=== PATIENT | male | born 1960 | race Caucasian/White ===

== ENCOUNTER → 2020-11-25 14:39 | Outpatient (BNVA) | payer OTHER, SELFPAY | PROVIDERS: PCP Nurse Practitioner Family; Visit Provider Nurse Practitioner Family ==

== ENCOUNTER → 2020-12-24 08:04 | Outpatient (BNVA) | payer OTHER, SELFPAY | PROVIDERS: PCP Nurse Practitioner Family; Visit Provider Nurse Practitioner Family ==

== ENCOUNTER 2021-01-07 06:03 | Outpatient (REF) | payer OTHER, SELFPAY ==
--- NOTE | ~2021-01-07 | FL_ITS ---
EXAMINATION: XR FLUOROSCOPY WITH IMAGES CLINICAL INFORMATION: M47.812 - Spondylosis without myelopathy or radiculopathy, cervical region COMPARISON: None. TECHNIQUE: Fluoroscopy performed by Kathryn Meza NP. Fluoroscopy time: 0.6 minutes DAP: 4.73 Gycm2 Images: 6 FINDINGS: There are bilateral spinal needles overlying the outer neural foramen at 3 levels lower cervical spine, each side. There is contrast in the nerve sheaths and some paraspinal soft tissue contrast. No visible vascular communication. FL/FL guidance in treatment room IMPRESSION: Fluoroscopy for pain management procedures.
== END 2021-01-07 06:04 | disposition home or self-care (01) ==
LOC: HO.RADIR 06:03
PROVIDERS: Visit Provider Anesthesiology
DX: M47.812 Spondylosis without myelopathy or radiculopathy, cervical region (principal); M47.27 Other spondylosis with radiculopathy, lumbosacral region; M45.9 Ankylosing spondylitis of unspecified sites in spine
CPT/HCPCS: 64490; 64491; Q9967

== ENCOUNTER → 2021-01-14 10:31 | Outpatient (BNVA) | payer OTHER, SELFPAY | PROVIDERS: PCP Nurse Practitioner Family; Visit Provider Nurse Practitioner Family ==

== ENCOUNTER → 2021-01-21 09:00 | Outpatient (BNVA) | payer OTHER, SELFPAY | PROVIDERS: PCP Nurse Practitioner Family; Visit Provider Nurse Practitioner Family ==

== ENCOUNTER 2021-06-13 11:19 | Day surgery (SDC) | payer OTHER, SELFPAY ==
--- NOTE | 2021-06-12 12:13 | P.CONAN_ITS ---
Documented by User: Alison Galindo NP 06/12/21 12:14 HPI - Anesthesia Eval Consult details Narrative: 60yo M for C5-C6-C7 Medial Branch Radiofrequency AB PMFSH Active Problems Active Problems: All Active Problems (Updated 06/06/21 @ 10:03 by Jamilah Avalos, BIANCA) Ankylosing spondylitis (Acute) Spondylosis of lumbosacral spine with radiculopathy (Acute) Spondylosis of cervical region without myelopathy or radiculopathy (Acute) Past Medical History Medical History Alcohol abuse Anxiety Arthritis Asthma Major depressive disorder Surgical History Surgical History History of appendectomy History of nasal septoplasty Social History Social History Patient Tobacco Use Status: Never used Tobacco Use of substances other than those prescribed or required for medical reasons: Unable to respond Have you been hit, kicked, punched, or otherwise hurt by someone within the past year? If so, by whom?: No Are you DNR?: No Advance Directives: No Advance Directives Information Provided: Yes Recently lost weight without trying: No Nutrition Risks: No Nutritional Risk Poor oral hygiene: No Meds Allergies Allergy/AdvReac Type Severity Reaction Status Date / Time No Known Allergies Allergy Verified 01/21/21 09:08 Home Medications Medication Instructions Recorded Confirmed Last Taken Type disulfiram 250 mg tablet 250 mg PO DAILY 11/25/20 06/06/21 Unknown History duloxetine 60 mg capsule,delayed 60 mg PO DAILY 11/25/20 06/06/21 Unknown History release (Cymbalta) gabapentin 300 mg capsule 300 mg PO TID 11/25/20 06/06/21 Unknown History indomethacin 50 mg capsule 50 mg PO BID 11/25/20 06/06/21 Unknown History albuterol sulfate 90 mcg/actuation 1 puff INHALATION Q4-6H PRN 06/06/21 06/06/21 Unknown History aerosol inhaler (ProAir HFA) cyclobenzaprine 10 mg tablet 1 tab PO BEDTIME 06/06/21 06/06/21 Unknown History lorazepam 0.5 mg tablet 1 tab PO BID PRN 06/06/21 06/06/21 Unknown History quetiapine 25 mg tablet 1 tab PO DAILY 06/06/21 06/06/21 Unknown History tramadol 50 mg tablet 1 tab PO TID PRN 06/13/21 06/13/21 06/13/21 10:00 History Exam Exam Date and Time: June 12, 2021 1213 Assessment and Plan Assessment Anesthesia Assessment: Chart Reviewed Documented by User: Norma Cam MD 06/13/21 12:59 [facility] Past Medical History Medical History Alcohol abuse Anxiety Arthritis Asthma Major depressive disorder Family History Family history of problems with anesthesia: No Surgical History Surgical History History of appendectomy History of nasal septoplasty History of Problems with Anesthesia: No Social History Social History Patient Tobacco Use Status: Never used Tobacco Use of substances other than those prescribed or required for medical reasons: Unable to respond Have you been hit, kicked, punched, or otherwise hurt by someone within the past year? If so, by whom?: No Are you DNR?: No Advance Directives: No Advance Directives Information Provided: Yes Recently lost weight without trying: No Nutrition Risks: No Nutritional Risk Poor oral hygiene: No Meds Allergies Allergy/AdvReac Type Severity Reaction Status Date / Time No Known Allergies Allergy Verified 01/21/21 09:08 Home Medications Medication Instructions Recorded Confirmed Last Taken Type disulfiram 250 mg tablet 250 mg PO DAILY 11/25/20 06/06/21 Unknown History duloxetine 60 mg capsule,delayed 60 mg PO DAILY 11/25/20 06/06/21 Unknown History release (Cymbalta) gabapentin 300 mg capsule 300 mg PO TID 11/25/20 06/06/21 Unknown History indomethacin 50 mg capsule 50 mg PO BID 11/25/20 06/06/21 Unknown History albuterol sulfate 90 mcg/actuation 1 puff INHALATION Q4-6H PRN 06/06/21 06/06/21 Unknown History aerosol inhaler (ProAir HFA) cyclobenzaprine 10 mg tablet 1 tab PO BEDTIME 06/06/21 06/06/21 Unknown History lorazepam 0.5 mg tablet 1 tab PO BID PRN 06/06/21 06/06/21 Unknown History quetiapine 25 mg tablet 1 tab PO DAILY 06/06/21 06/06/21 Unknown History tramadol 50 mg tablet 1 tab PO TID PRN 06/13/21 06/13/21 06/13/21 10:00 History Exam Airway Mallampati Class: II TM Dist: >3cm Neck ROM: Full Assessment and Plan Assessment Anesthesia Assessment: Anesthesia Plan Discussed Final Anesthetic Review Family History of Problems with Anesthesia: No History of Problems with Anesthesia: No NPO: No ASA Class: II Final Preanesthetic Review: No Changes in Pt Med Stat, Meds/Allgs Chart Reviewed, Consent Obtained/Reviewed and Anes Risks/Benef Reviewed Patient Risk: Low Procedure Risk: Low Assessment/Block/Sedation in SS: Assess/Block/Sedation-SS Anesthetic Plan Anesthetic Plan: MAC: Disposition: Standard PACU
--- NOTE | ~2021-06-13 | FL_ITS ---
EXAMINATION: XR FLUOROSCOPY WITH IMAGES CLINICAL INFORMATION: Medial branch RFA, cervical COMPARISON: None. TECHNIQUE: Fluoroscopy performed by Dr. Rashaad Richey. Fluoroscopy time: 1.7 minutes DAP: 8.6 Gycm2 Images: 2 FINDINGS: There are spinal electrode seen overlying the bilateral lateral masses lower cervical spine, each side at 3 levels. FL/FL guidance in OR IMPRESSION: Fluoroscopy for pain management procedures.
--- NOTE | 2021-06-13 11:44 | MHC.SHP ---
Pre-Procedural Eval Section A Date of Service: 06/13/21 Section B Chief Complaint: Spondylosis of cervical region Details of Present Illness: As above Relevant Family History (Specify if Yes): No Relevant Social History: None Present Medications: see Short Stay Collaborative assessment Medical History: No relevant PMH Allergies: Allergies Allergy/AdvReac Type Severity Reaction Status Date / Time No Known Allergies Allergy Verified 01/21/21 09:08 Review of Systems Sugical H&P ROS: Negative: Constitution, Cardiovascular, Respiratory, Neurological, Psychiatric, Hem-Onc, Allergic/Immunologic, Gastrointestinal, Genitourinary, Musculoskeletal, Integumentary, Endocrine and Eyes/Ears/Nose/Throat Exam Surgical H&P Exam: Normal: HEENT, Normal: Heart, Normal: Lungs, Normal: Extremities, Normal: Abdomen, Normal: Skin and Normal: Neurological Plan Diagnosis/Plan: Unchanged I have reviewed the history and physical and performed a pertinent physical examination on my patient. No changes have occurred unless specified.
[2021-06-13 11:51] VITALS: BP 153/87; PULSE 96; RESP 18; TEMP 36.3; O2SAT 96; BMI 26.6
[2021-06-13] MEDS: Lactated Ringers 1,000 ML 100 ML IVCONT (12:09)
--- NOTE | 2021-06-13 13:18 | MHC.SHP ---
Pre-Procedural Eval Section A Date of Service: 06/13/21 Section B Chief Complaint: Spondylosis of cervical region Details of Present Illness: As above Relevant Family History (Specify if Yes): No Relevant Social History: None Present Medications: see Short Stay Collaborative assessment Medical History: No relevant PMH History of Previous Operations: No relevant previous surgery Allergies: Allergies Allergy/AdvReac Type Severity Reaction Status Date / Time No Known Allergies Allergy Verified 01/21/21 09:08 Review of Systems Sugical H&P ROS: Negative: Constitution, Cardiovascular, Respiratory, Neurological, Psychiatric, Hem-Onc, Allergic/Immunologic, Gastrointestinal, Genitourinary, Musculoskeletal, Integumentary, Endocrine and Eyes/Ears/Nose/Throat Exam Surgical H&P Exam: Normal: HEENT, Normal: Heart, Normal: Lungs, Normal: Extremities, Normal: Abdomen, Normal: Skin and Normal: Neurological Plan Diagnosis/Plan: Unchanged I have reviewed the history and physical and performed a pertinent physical examination on my patient. No changes have occurred unless specified.
[2021-06-13 15:15] VITALS: BP 147/90; PULSE 71; RESP 17; TEMP 36.6; O2SAT 100
--- NOTE | 2021-06-13 15:21 | P.BOP_ITS ---
Brief Operative Note Date of Service: 06/13/21 Pre-op diagnosis: Spondylosis cervical spine ankylosis spondylitis Procedure: Radiofrequency ablation C5-C6 C7 medial branch nerves bilateral Implants: None Surgeon: Rashaad Richey MD Anesthesia: MAC Was an Mess Cook used for this Procedure?: No Estimated blood loss (mL): 9 Pathology: none sent Condition: stable Disposition: PACU
--- NOTE | 2021-06-13 15:22 | P.OP_ITS ---
Operative Note Operative Note Date of Service: 06/13/21 Narrative: Informed consent was explained to the patient. All questions were explained and answered.? The patient was taken inside the operating room where the patient was positioned prone on the operating table with the pillow under the chest and a small head support. ASA monitors were applied and the patient was minimally sedated. Time-out was performed delineating correct site, side, the nature of the procedure, patient's allergy, All operating room staff was participating in OR time-out procedure. The posterior neck was prepped with ChloraPrep and draped with sterile towels.? Sterilely draped C-arm was brought over the operating field and square picture of C5-C6 and C7? vertebrae? were delineated on the screen.? Point of interest were delineated as BILATERAL lateral? masses of the above mentioned vertebrae. The waste line of the lateral masses was chosen as the final needle target. The projection of the point of interest to the skin were injected with the small amount of local anesthetic lidocaine 2% 1-1.5 cc.? After that first on the right side 18 gauge 100 mm radiofrequency cannulas were driven to the point of interest in tunnel vision fashion.? After needles gently contacting the bone at the point of interests the lateral view was obtained for each cannula and it? was adjusted to be in the centroid of the lateral mass paralelloid projection. Stylets were removed from the cannulas and nitinol e lectrodes were inserted into the cannulas. Testing was performed at each level during which the patient did not report any motor stimulation in the arm, forearm, or hand. The electrodes were removed; the cannulas were injected with small amount of bupivacaine 0.5%-1cc mixed with trace amount of kenalog. The electrodes were reinserted and after 90 seconds of wait? RF energy was applied at the temperature of 89 degrees Celsius for 90 seconds. After that the cannulas were rotated 180 degreed the same energy application was repeated.? Upon completion of the injections the cannulas were removed and the procedure was performed in the mirroring fashion on the left side. Sterile band aids were applied , patient was taken outside of the operating room to recovery room where recovered uneventfully.? The patient went home without immediate complications.?
[2021-06-13 15:30] VITALS: BP 162/89; PULSE 74; RESP 16; TEMP 36.6; O2SAT 97
== END 2021-06-13 15:43 | disposition home or self-care (01) ==
PROVIDERS: PCP Nurse Practitioner Family; Visit Provider Anesthesiology
PROC: (CPT 64633; principal; 2021-06-13 13:00)
DX: M47.812 Spondylosis without myelopathy or radiculopathy, cervical region (principal); M47.27 Other spondylosis with radiculopathy, lumbosacral region; M45.9 Ankylosing spondylitis of unspecified sites in spine; Z79.891 Long term (current) use of opiate analgesic
CPT/HCPCS: 64633; 64634 ×2; J2250; J2405; J3010; J3300; Q9967

== ENCOUNTER → 2021-07-21 10:08 | Outpatient (BNVA) | payer OTHER, SELFPAY | PROVIDERS: PCP Nurse Practitioner Family; Visit Provider Anesthesiology ==

== ENCOUNTER 2023-10-18 09:50 | Emergency (ER) | payer OTHER, SELFPAY ==
[2023-10-18 10:09] VITALS: BP 169/104; PULSE 73; RESP 20; TEMP 35.8; O2SAT 98; BMI 27.4
[2023-10-18 10:19] LABS: MANUAL DIFF FLAG NO
[2023-10-18 10:20] LABS: Basophils Percent Auto 0.2 % (0-2); Eosinophils Absolute Auto 0.1 X10*3/uL (0.0-0.4); Eosinophils Percent Auto 0.6 % (0-4); Hematocrit 40.8 % (42.0-52.0); Hemoglobin 14.5 g/dl (14.0-18.0); Imm Gran Abs Auto 0.05 X10*3/uL (0.00-0.03); Imm Gran Pct Auto 0.4 % (0.0-0.4); Lymphocytes Absolute Auto 0.8 X10*3/uL (1.2-4.9); Lymphocytes Percent Auto 5.9 % (20-40); Mean Corpuscular HGB Conc 35.5 g/dl (31.0-36.0); Mean Corpuscular Hemoglobin 33.7 pg (27.0-33.0); Mean Corpuscular Volume 94.9 fL (80.0-98.0); Mean Platelet Volume 8.7 fL (9.4-12.4); Monocytes Absolute Auto 0.8 X10*3/uL (0.1-1.2); Monocytes Percent Auto 5.9 % (2-11); Neutrophils Absolute Auto 11.4 x10*3/uL (2.0-8.3); Platelet Count 273 X10*3/uL (160-400); Red Cell Distribution Width 12.2 % (11.0-16.0); White Blood Count 13.1 X10*3/uL (4.8-10.8)
[2023-10-18 10:38] LABS: Alanine Aminotransferase 44 U/L (0-40); Albumin Level 4.7 g/dL (3.5-5.0); Alkaline Phosphatase 61 U/L (39-117); Anion Gap 14 (12-20); Aspartate Amino Transferase 59 U/L (5-37); Bilirubin Direct 0.2 mg/dL (0.0-0.5); Bilirubin Total 0.6 mg/dL (0.0-1.0); Blood Urea Nitrogen 17 mg/dL (9-16); Calcium 9.6 mg/dL (8.4-10.2); Carbon Dioxide 21 mmol/L (22-29); Chloride 108 mmol/L (96-108); Estimated Glomerular Filt Rate > 60; Glucose Random 119 mg/dL (60-115); Lipase 22 U/L (8-78); Sodium 139 mmol/L (135-145); Total Protein 7.9 g/dL (6.5-8.0)
[2023-10-18 15:03] VITALS: BP 165/98; PULSE 76; RESP 19; TEMP 36.6; O2SAT 98
--- NOTE | 2023-10-18 15:37 | ED_ITS ---
HPI - General Adult General Chief complaint: Abdominal Pain Stated complaint: Vomiting/Abd pain Time Seen by Provider: 10/18/23 15:22 Source: patient and family Mode of arrival: ambulatory Limitations: no limitations History of Present Illness HPI narrative: Patient comes to the emergency room accompanied by his . According to the patient, approximately 7 hours ago, patient woke up vomiting coffee-ground emesis. Patient denies any black or bloody stool. Patient complaining of diffuse abdominal discomfort. Patient states it is mostly secondary from vomiting so much, not and intestinal type of pain. Patient denies any weakness, no near-syncope episodes. Patient admits to drink alcohol heavily. Patient admits that he has a problem with alcohol. Denies using any other drugs. Patient states that he has never been diagnosed with any hepatic conditions and states that he has never had a GI bleed before. Related Data Home Medications Medication Instructions Recorded Confirmed disulfiram 250 mg tablet 250 mg PO DAILY 11/25/20 06/06/21 duloxetine 60 mg capsule,delayed 60 mg PO DAILY 11/25/20 06/06/21 release (Cymbalta) gabapentin 300 mg capsule 300 mg PO TID 11/25/20 06/06/21 indomethacin 50 mg capsule 50 mg PO BID 11/25/20 06/06/21 albuterol sulfate 90 mcg/actuation 1 puff inhalation Q4-6H PRN 06/06/21 06/06/21 aerosol inhaler (ProAir HFA) Wheezing cyclobenzaprine 10 mg tablet 1 tab PO BEDTIME 06/06/21 06/06/21 lorazepam 0.5 mg tablet 1 tab PO BID PRN Anxiety 06/06/21 06/06/21 quetiapine 25 mg tablet 1 tab PO DAILY 06/06/21 06/06/21 tramadol 50 mg tablet 1 tab PO TID PRN pain 06/13/21 06/13/21 Previous Rx's Medication Instructions Recorded oxycodone-acetaminophen 5 mg-325 1 tab PO BID PRN pain 30 days #60 01/21/21 mg tablet (Percocet) tabs tizanidine 2 mg tablet 2 mg PO BEDTIME 30 days #30 tabs 01/21/21 omeprazole 40 mg capsule,delayed 40 mg PO DAILY #30 caps 10/18/23 release Allergies Allergy/AdvReac Type Severity Reaction Status Date / Time No Known Allergies Allergy Verified 10/18/23 10:12 Review of Systems 2 Review of Systems: Constitutional : No Weight loss, No Fever, No Chills, No Night Sweats, No Fatigue, No Malaise ENT/Mouth : No Hearing loss, No Ear Pain, No Nasal Congestion, No Sinus Pain, No Hoarseness, No sore throat, No Rhinorrhea, No Swallowing Difficulty Eyes: No Eye Pain, No Swelling, No Redness, No Foreign Body, No Discharge, No Vision Changes Cardiovascular : No Chest Pain, No SOB, No Dyspnea on Exertion, No Orthopnea, No Edema, No Palpitations Respiratory : No Cough, No Sputum, No Wheezing, No Smoke Exposure, No Dyspnea Gastrointestinal : Complaining of vomiting coffee-ground emesis, No Diarrhea, No Constipation, No abdominal Pain, No Hematochezia, No Melena Genitourinary : no irregular bleeding, No Dysuria, No Urinary Frequency, No Hematuria, No Urinary Incontinence, No Urgency, No Flank Pain, No Urinary Flow Changes, No Hesitancy Musculoskeletal : No joint pain, No Myalgias, No Joint Swelling Skin : No Skin Lesions, No rash Neuro : No Weakness, No Numbness, No Paresthesias, No Loss of Consciousness, No Dizziness, No Headache Psych : No Anxiety/Panic, No Depression, No SI/HI/AH/VH, admits to drinking alcohol heavily Heme/Lymph: No Bruising, No Bleeding,No Lymphadenopathy Endocrine : No Polyuria, No Polydipsia, No Temperature Intolerance PMFSH Past Medical History Onset Date is defined in the Problem List Problems that require an onset date and time if occurred within 24 hrs of arrival to the ED Aortic Dissection and Rupture; Neurologic impairment; Cardiopulmonary Arrest; Endotracheal Intubation; Insertion or Replacement of Mechanical Circulatory Assist Device Medical History Major depressive disorder Asthma Alcohol abuse Arthritis Anxiety Surgical History History of nasal septoplasty History of appendectomy Social History Social History Alcohol intake: current Patient Tobacco Use Status: Never used Tobacco Smoked in Last 30 Days: No Use of substances other than those prescribed or required for medical reasons: No Advance Directives: No Advance Directives Information Provided: No Physical Exam ED Vital Signs: Vital Signs - 24 hr 10/18/23 10:09 10/18/23 15:03 10/18/23 17:20 Temperature 96.5 F L 97.8 F Pulse Rate 73 76 76 Respiratory Rate 20 19 16 Blood Pressure 169/104 H 165/98 H 129/75 Pulse Oximetry 98 98 96 Oxygen Delivery Method Room Air Room Air Room Air 10/18/23 19:54 Temperature Pulse Rate 79 Respiratory Rate 14 Blood Pressure 135/77 Pulse Oximetry 97 Oxygen Delivery Method Room Air BMI result Body Mass Index 27.4 Const Other: Appearance: Alert. Oriented X3. No acute distress. Eyes: Pupils equal, round and reactive to light. ENT: Pharynx normal. Neck: Normal inspection. Neck supple. No lymph nodes noted. No crepitus CVS: Normal heart rate and rhythm. Pulses normal. Normal S1 and S2 Respiratory: No respiratory distress. Breath sounds normal. No Wheezing. No rales Abdomen: Soft and nontender. No rigidity. No distention. Digital rectal exam: Brown stool Skin: Skin warm and dry. Normal skin color. Normal skin turgor. Extremities: No lower extremity edema. No Lacerations. No Rash Neuro: Oriented X 3. No motor deficit. No sensory deficit. Moving all extremities. No slurred speech. CN 2 through 12 grossly intact Psych: calm, cooperative, normal affect Course Course Course Narrative: -patient receiving IV fluids, pantoprazole, Zofran. At this time, we will hold off on octreotide. Patient has not been vomiting, there is no obvious signs of GI bleed. Will wait for the results. -my interpretation of labs: White blood cell count 13.1, likely secondary to reactive leukocytosis, hemoglobin normal, platelets normal. No significant electrolyte disturbance, AST and ALT slightly elevated, direct and total bilirubin normal, lipase normal -occult guaiac test pending Medications Administered Discontinued Medications Generic Name Dose Route Start Last Admin Trade Name Freq PRN Reason Stop Dose Admin Sodium Chloride 1,000 mls @ 999 mls/hr 10/18/23 15:33 10/18/23 17:23 Ns IVCONT 10/18/23 16:33 Infused .Q1H1M ONE Infusion Ondansetron HCl 4 mg 10/18/23 15:33 10/18/23 15:52 Ondansetron Hcl 4 Mg/2 Ml Vial IVPUSH 10/18/23 15:34 4 mg ONCE ONE Administration Pantoprazole Sodium 80 mg 10/18/23 15:37 10/18/23 15:59 Pantoprazole Sodium 40 Mg/10 Ml Vial IVPUSH 10/18/23 15:38 80 mg ONCE ONE Administration Medical Decision Making Medical Decision Making [facility] Narrative: -I discussed the labs with the patient -my interpretation of labs, white blood cell count 30.1, likely reactive leukocytosis, hemoglobin 14.5 hematocrit and platelets stable, occult test heme- negative -no significant chemistry abnormalities, AST in LFTs slightly elevated -patient received the above-mentioned treatment. Patient feeling much better, no vomiting. -patient feeling better. -we offered care/personal health coach, patient requesting to be seen for possible detox -time, patient is medically cleared. Care consult pending -20:45: Patient no longer wants to wait for the care team, requesting to be discharged. Patient alert and oriented x3, no acute distress, no SI, no HI, sober, patient's family at bedside Differential Diagnosis Differential Diagnoses: The differential diagnosis associated with the presentation includes (Upper GI bleed, lower GI bleed, alcoholic gastritis) Admission/Observation Consideration of admission/observation: Escalation of care including admission/observation considered (Given patient's initial presentation and symptoms, admission was considered) Lab Data [facility] Lab Attestation statement: I reviewed the patient's lab results. 10/18/23 10:16 10/18/23 10:16 Labs: Lab Results 10/18/23 10/18/23 10/18/23 Range/Units 10:16 15:32 15:32 WBC 13.1 H (4.8-10.8) X10*3/uL RBC 4.30 L (4.60-5.80) X10*6/uL Hgb 14.5 (14.0-18.0) g/dl Hct 40.8 L (42.0-52.0) % MCV 94.9 (80.0-98.0) fL MCH 33.7 H (27.0-33.0) pg MCHC 35.5 (31.0-36.0) g/dl RDW 12.2 (11.0-16.0) % Plt Count 273 (160-400) X10*3/uL MPV 8.7 L (9.4-12.4) fL Immature Gran % (Auto) 0.4 (0.0-0.4) % Neut % (Auto) 87.0 H (45-73) % Lymph % (Auto) 5.9 L (20-40) % [place] % (Auto) 5.9 (2-11) % Eos % (Auto) 0.6 (0-4) % Baso % (Auto) 0.2 (0-2) % Lymph # (Auto) 0.8 L (1.2-4.9) X10*3/uL [place] # (Auto) 0.8 (0.1-1.2) X10*3/uL Eos # (Auto) 0.1 (0.0-0.4) X10*3/uL Baso # (Auto) 0.0 (0.0-0.2) X10*3/uL Abs Immat Gran (auto) 0.05 H (0.00-0.03) X10*3/uL Absolute Neuts (auto) 11.4 H (2.0-8.3) x10*3/uL Absolute Nucleated RBC 0.000 (0.0-0.012) X10*3/uL Nucleated RBC % (auto) 0.0 (0.0-0.2) /100WBC Sodium 139 (135-145) mmol/L Potassium 4.0 (3.3-5.1) mmol/L Chloride 108 (96-108) mmol/L Carbon Dioxide 21 L (22-29) mmol/L Anion Gap 14 (12-20) BUN 17 H (9-16) mg/dL Creatinine 0.85 (0.5-1.4) mg/dL Estim Creat Clear Calc 91.0 Estimated GFR > 60 Random Glucose 119 H (60-115) mg/dL Calcium 9.6 (8.4-10.2) mg/dL Total Bilirubin 0.6 (0.0-1.0) mg/dL Direct Bilirubin 0.2 (0.0-0.5) mg/dL AST 59 H (5-37) U/L ALT 44 H (0-40) U/L Alkaline Phosphatase 61 (39-117) U/L Total Protein 7.9 (6.5-8.0) g/dL Albumin 4.7 (3.5-5.0) g/dL Lipase 22 (8-78) U/L Urine Color Urine Appearance Urine pH (5.0-9.0) Ur Specific [place] (1.005-1.025) Urine Protein (Neg-Trace) mg/dL Urine Glucose (UA) (Negative) mg/dL Urine Ketones (Negative) mg/dL Urine Blood (Negative) Urine Nitrite (Negative) Ur Leukocyte Esterase (Negative) Stool Collect Date Cancelled Stool Occult Blood Cancelled NEGATIVE Stool 2 Collect Date Cancelled Stool Occult Blood #2 Cancelled Stool 3 Collect Date Cancelled Stool Occult Blood #3 Cancelled 10/18/23 Range/Units 17:59 WBC (4.8-10.8) X10*3/uL RBC (4.60-5.80) X10*6/uL Hgb (14.0-18.0) g/dl Hct (42.0-52.0) % MCV (80.0-98.0) fL MCH (27.0-33.0) pg MCHC (31.0-36.0) g/dl RDW (11.0-16.0) % Plt Count (160-400) X10*3/uL MPV (9.4-12.4) fL Immature Gran % (Auto) (0.0-0.4) % Neut % (Auto) (45-73) % Lymph % (Auto) (20-40) % [place] % (Auto) (2-11) % Eos % (Auto) (0-4) % Baso % (Auto) (0-2) % Lymph # (Auto) (1.2-4.9) X10*3/uL [place] # (Auto) (0.1-1.2) X10*3/uL Eos # (Auto) (0.0-0.4) X10*3/uL Baso # (Auto) (0.0-0.2) X10*3/uL Abs Immat Gran (auto) (0.00-0.03) X10*3/uL Absolute Neuts (auto) (2.0-8.3) x10*3/uL Absolute Nucleated RBC (0.0-0.012) X10*3/uL Nucleated RBC % (auto) (0.0-0.2) /100WBC Sodium (135-145) mmol/L Potassium (3.3-5.1) mmol/L Chloride (96-108) mmol/L Carbon Dioxide (22-29) mmol/L Anion Gap (12-20) BUN (9-16) mg/dL Creatinine (0.5-1.4) mg/dL Estim Creat Clear Calc Estimated GFR Random Glucose (60-115) mg/dL Calcium (8.4-10.2) mg/dL Total Bilirubin (0.0-1.0) mg/dL Direct Bilirubin (0.0-0.5) mg/dL AST (5-37) U/L ALT (0-40) U/L Alkaline Phosphatase (39-117) U/L Total Protein (6.5-8.0) g/dL Albumin (3.5-5.0) g/dL Lipase (8-78) U/L Urine Color Yellow Urine Appearance Clear Urine pH 5.5 (5.0-9.0) Ur Specific [place] 1.015 (1.005-1.025) Urine Protein Negative (Neg-Trace) mg/dL Urine Glucose (UA) Negative (Negative) mg/dL Urine Ketones Negative (Negative) mg/dL Urine Blood Negative (Negative) Urine Nitrite Negative (Negative) Ur Leukocyte Esterase Negative (Negative) Stool Collect Date Stool Occult Blood Stool 2 Collect Date Stool Occult Blood #2 Stool 3 Collect Date Stool Occult Blood #3 Critical Care Time Critical Care Time Critical Care Time: Yes Total Critical Care Time: 60 Attestation: I have personally provided critical care time. Time includes review of lab data, radiology results, discussion with consultants, and monitoring for potential decompensation. Intervention performed as documented. Discharge Plan Discharge Clinical Impression: Acute alcoholic gastritis Patient Disposition: Home, Self-Care Instructions: Gastritis (ED) Additional Instructions: Please follow-up with your primary care physician tomorrow. If you have any worsening or new symptoms, please return to the emergency room or call 911 Prescriptions: New omeprazole 40 mg capsule,delayed release(DR/EC) 40 mg PO DAILY Qty: 30 1RF No Action quetiapine 25 mg tablet 1 tab PO DAILY cyclobenzaprine 10 mg tablet 1 tab PO BEDTIME lorazepam 0.5 mg tablet 1 tab PO BID PRN (Reason: Anxiety) albuterol sulfate [ProAir HFA] 90 mcg/actuation Hfa Aerosol Inhaler 1 puff INHALATION Q4-6H PRN (Reason: Wheezing) tramadol 50 mg tablet 1 tab PO TID PRN (Reason: pain) duloxetine [Cymbalta] 60 mg capsule,delayed release(DR/EC) 60 mg PO DAILY indomethacin 50 mg capsule 50 mg PO BID gabapentin 300 mg capsule 300 mg PO TID disulfiram 250 mg tablet 250 mg PO DAILY tizanidine 2 mg tablet 2 mg PO BEDTIME 30 Days Qty: 30 0RF oxycodone-acetaminophen [Percocet] 5-325 mg tablet 1 tab PO BID PRN (Reason: pain) 30 Days Qty: 60 0RF Rx Instructions: dnf until 02/06/21 Referrals: Alf Hernandez MD [Physician] - 10/25/23 (May need endoscopy/alcoholic gastritis versus esophageal varices)
[2023-10-18 15:51] LABS: OBS Int Ctl Valid YES; OBS1 NEGATIVE (NEGATIVE)
[2023-10-18] MEDS: ondansetron HCL 4 MG/2 ML VIAL IVPUSH ×2 (15:52→20:58)
[2023-10-18] MEDS: 0.9 % Sodium Chloride 1,000 ML 999 ML IVCONT (15:52)
[2023-10-18] MEDS: Pantoprazole Sodium 40 MG/10 ML VIAL 80 MG IVPUSH (15:59)
[2023-10-18 17:20] VITALS: BP 129/75; PULSE 76; RESP 16; O2SAT 96
--- NOTE | 2023-10-18 17:22 | PC.NURSE ---
pt is da daily drinker, reports that he started taking Naltrexone a few days ago. CIWA 0
[2023-10-18 18:14] LABS: Appearance Urine Clear; Color Urine Yellow; Glucose Urine UA Negative (Negative); Leukocyte Esterase Urine Negative (Negative); Nitrite Urine Negative (Negative); PH 5.5 (5.0-9.0); Specific Gravity - Urine 1.015 (1.005-1.025); Urine Blood Negative (Negative); Urine Ketones Negative (Negative); Urine Protein Negative (Neg-Trace)
[2023-10-18 19:54] VITALS: BP 135/77; PULSE 79; RESP 14; O2SAT 97
--- NOTE | 2023-10-18 20:20 | PC.NURSE ---
pt tells this RN he wants to go home and would like to follow up with detox services outpatient rather than stay the night in the hospital . pt at bedside. states he feels safe to go home. A&Ox4 aware
--- NOTE | 2023-10-18 20:45 | PC.NURSE ---
pt requesting one dose of zofran prior to discharge to prevent nausea at home. MD verbal order for zofran
== END 2023-10-18 21:08 | disposition home or self-care (01) ==
PROVIDERS: Emergency Provider Emergency Medicine; PCP Nurse Practitioner Family
DX: K29.20 Alcoholic gastritis without bleeding (principal); F10.10 Alcohol abuse, uncomplicated; Y90.9 Presence of alcohol in blood, level not specified; J45.909 Unspecified asthma, uncomplicated; F41.9 Anxiety disorder, unspecified; Z79.899 Other long term (current) drug therapy
CPT/HCPCS: 36415; 80048; 80076; 81003; 82272; 83690; 85025; 96361; 96374; 96375; 96376; 99284; C9113; J2405

== ENCOUNTER 2025-06-05 10:22 | Outpatient (AMB) | payer OTHER, SELFPAY ==
--- NOTE | 2025-06-05 10:35 | A.OFFPC_ITS ---
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 // Requesting a PE Dean Of Education Required: No Accompanied by: Allergies No Known Allergies Allergy (Verified 06/05/25 10:55) Medication List - Last Reconciled 06/05/25 by SALTY Black albuterol sulfate 90 mcg/actuation (ProAir HFA) 1 puff inhalation Q4-6H PRN baclofen 20 mg PO BID clonidine HCl 0.1 mg PO BID duloxetine (Cymbalta) 60 mg PO DAILY gabapentin ER 600 mg PO QPM indomethacin 50 mg PO BID naltrexone 50 mg PO DAILY Tobacco use date assessed: 06/05/25 Dental Screening Dental Screen Date: 06/05/25 Did you have a dental visit in the last 12 months?: No Did you have a dental problem in the last 6 months where you did not have access to dental care?: No Was dental information given to patient?: No HPI MOVE COORDINATOR // Requesting a PE HPI Details Previous PCP: [facility] Last visit: October PE: same Specialist: orthopedics, Sylvain Roper, has been getting injections right wrist. Will need referral. OBGYN:n/a Past medical history: appendicitis when he was about 20 years old. Medications: Family HX: Problem: The patient is a 64-year-old male presenting for management of multiple chronic conditions and evaluation of alcohol use disorder. The patient reports a history of alcohol use disorder, consuming a minimum of six beers nightly, which he attributes to pain and depression. He is currently on naltrexone and clonidine for management, but reports limited effectiveness. He has been participating in an online alcohol treatment program, [facility], and receives counseling and medication management through this service. The patient has a history of hypertension, which he monitors daily, typically maintaining readings under 130/80 mmHg, although recent readings have been elevated. He attributes some of the elevation to his alcohol use. The patient has a longstanding history of ankylosing spondylitis, diagnosed in his mid to late 20s, which has been managed with rheumatology care until approximately . He reports that the condition has calmed down, leading to discontinuation of rheumatology follow-up. He underwent a cervical laminectomy with fusion at C5-C6 approximately 2.5 years ago due to spinal stenosis, which was causing gait disturbances and clonus in his lower extremities. Post-surgery, he experienced significant pain but engaged in physical therapy, which provided some relief. The patient also has lumbar spondylolisthesis, which may be contributing to his neuropathy symptoms, including numbness and tingling in his hands and feet. He is considering further evaluation due to worsening symptoms. He reports mild asthma, diagnosed previously, with infrequent wheezing episodes managed with albuterol as needed. His past medical history includes osteoarthritis and an appendectomy performed at age 19. 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 1. Little interest or pleasure in doing things: not at all 2. Feeling down, depressed, or hopeless: not at all 3. Trouble falling or staying asleep, or sleeping too much: not at all 4. Feeling tired or having little energy: not at all 5. Poor appetite or overeating: not at all 6. Feeling bad about yourself - or that you are a failure or have let yourself or your family down: not at all 7. Trouble concentrating on things, such as reading the newspaper or watching television: not at all 8. Moving or speaking so slowly that other people could have noticed. Or the opposite - being so fidgety or restless that you have been moving around a lot more than usual: not at all 9. Thoughts that you would be better off or of hurting yourself in some way: not at all Total score: 0 Depression Screening Interpretation: Negative Depression Screening Done: Yes 51900 - PHQ-9 Billing: Yes Source: Developed by Drs. Kt Coreas, Adalgisa Jauregui, Silvano Man and colleagues, with an educational arelis from [employer]. Thrive Questionnaire Date Thrive assessed: 06/05/25 I am a: Patient What is your living situation today?: I have a steady place to live Within the past 12 months, did the food you bought not last and you didn't have the money to get more?: I choose not to answer this question Within the past 12 months, did you worry whether your food would run out before you got money to buy more?: I choose not to answer this question Do you have trouble paying for medicines?: No Do you have trouble getting transportation to medical appointments?: No Do you have trouble paying your heating and electricity bill?: No Do you have trouble taking care of your child, family member or friend?: No Do you have trouble with day-to-day activities such as bathing, preparing meals, shopping, managing finances, etc.?: No Are you currently unemployed and looking for a job?: No Are you interested in more education?: No Please select the resources that you would like help with: Food Currently or been in a relationship where the following occur: No concerns reported THRIVE Score: 0 AUDIT C Alcohol Use Questionnaire (AUDIT-C) 1. How often do you have a drink containing alcohol?: 4 or more times a week 2. How many drinks containing alcohol do you have on a typical day when you are drinking?: 5 or 6 3. How often do you have six or more drinks on one occasion?: Daily or almost daily Total Score: 10 ROGE-7 AMB Questionnaire ROGE-7 Date ROGE - 7 assessed: 06/05/25 Feeling nervous, anxious, or on edge: 3 = Nearly every day Not being able to stop or control worryin = Nearly every day Worrying too much about different things: 3 = Nearly every day Trouble relaxin = Nearly every day Being so restless that it is hard to sit still: 0 = Not at all Becoming easily annoyed or irritable: 3 = Nearly every day Feeling afraid as if something awful might happen: 3 = Nearly every day Total ROGE-7 score (0-4 normal; 5-9 mild; 10-14 moderate; 15-21 severe): 18 Source: Developed by Drs. Kt Coreas, Adalgisa Jauregui, Silvano Man and colleagues, with an educational arelis from [employer]. ROGE-7 Assessment Billing ROGE-7 Assessment Tool: ROGE-7 Assessment 17785 Review of Systems Const Denies headache(s) Eyes Denies loss of vision ENT Denies vertigo, Denies dizziness, Denies headache(s), Reports neck pain and Denies sore throat Card Denies chest pain, Denies leg edema and Denies lightheadedness Resp Denies cough, Denies hemoptysis and Denies wheezing GI Denies abdominal pain, Denies melena, Denies constipation, Denies diarrhea and Denies vomiting Denies dysuria, Denies urinary frequency and Denies urinary urgency Musc Reports back pain, Reports arthralgias (multiple joints -arthritis), Denies joint swelling, Reports neck pain, Reports numbness (Hands and feet) and Reports tingling (Hands and feet) Neuro Denies Abnormal speech present, Denies behavioral changes, Denies vertigo, Denies dizziness, Denies headache(s), Denies loss of vision, Denies memory loss, Reports numbness (Hands and feet) and Reports tingling (Hands and feet) Psych Reports anxiety, Denies behavioral changes, Denies depression, Denies memory loss and Denies panic attacks Riki/Lymph Denies easy bleeding and Denies easy bruising Aller/Immun Denies wheezing Physical exam (Primary Care) Vital Signs: Last Vital Signs Temp 97.3 F 06/05/25 10:36 Pulse 57 06/05/25 10:36 Resp 18 06/05/25 10:36 BP 144/92 H 06/05/25 11:17 Pulse Ox 96 06/05/25 10:36 Oxygen Delivery Method Room Air 06/05/25 10:36 BMI result Body Mass Index 25.3 Tobacco/Smoking Status: Tobacco use Status Tobacco use date assessed 06/05/25 06/05/25 10:50 Patient Tobacco Use Status Never used Tobacco 06/05/25 10:50 e-Cigarette/Vaping Use Never Used 06/05/25 10:50 PHQ-9: PHQ-9 Score PHQ-9: Total score 0 06/05/25 22:47 Depression Screening Interpretation: Negative Thrive Assessment: Date of Thrive Assessment Date Thrive assessed 06/05/25 06/05/25 10:50 Currently or been in a relationship where the following occur: No concerns reported Const General: healthy appearing, no acute distress, alert and awake Nutritional Appearance: well nourished Orientation/consciousness: oriented to person, oriented to place and oriented to time HENMT Ears: TM's normal bilaterally General nose exam: Normal nasal mucous membranes and turbinates present Eyes Conjunctivae: conjunctivae normal Sclerae: sclerae normal Pupils: Equal, round and reactive pupils present Neck Neck: Yes no lymphadenopathy and Yes no JVD Thyroid: Thyroid normal Carotids: no bruits Resp Effort & Inspection: normal respiratory effort and not tachypneic Auscultation: no crackles, no rales, no rhonchi and no wheezes Cardio Rate: regular rate Rhythm: regular rhythm Heart sounds: no murmurs and normal S1 and S2 GI Palpation (GI): Soft to palpation, nontender, no hepatomegaly and no splenomegaly Auscultation: normal bowel sounds Skin General skin exam: no rashes or lesions noted and dry skin Neuro General: oriented to person, oriented to place and oriented to time Cranial nerves: Yes Equal, round and reactive pupils present Speech: No Abnormal speech present Gait exam (Neuro): Normal gait present Motor exam (neuro): no tremor noted Extrem Right upper extremity: full ROM Left upper extremity: full ROM Right lower extremity: full ROM; no edema Left lower extremity: full ROM; no edema Psych Mental Status: mental status grossly normal Speech and movement: Normal speech and movement present Affect: normal affect Attitude: cooperative Thought process: Normal thought process present Coding Level of Care Code New Pt Level 4 (86275) Diagnoses Spondylolisthesis, lumbar region M43.16 Anxiety F41.9 Alcohol abuse F10.10 Arthritis M19.90 Mild intermittent asthma without complication J45.20 Asthma severity: mild Asthma persistence: intermittent Asthma complication type: uncomplicated Right wrist pain M25.531 Additional Codes PHQ-9 - 54657 - PHQ-9 Billing: Yes ([id number]) ROGE-7 Assessment Billing - ROGE-7 Assessment Tool: ROGE-7 Assessment 08730 ([id number]) Time Spent (min) 38 Assessment & Plan Assessment & Plan (1) Spondylolisthesis, lumbar region: Code(s): M43.16 - Spondylolisthesis, lumbar region Category: Medical (2) Anxiety: Code(s): F41.9 - Anxiety disorder, unspecified Category: Medical (3) Alcohol abuse: Comment: On antabuse Code(s): F10.10 - Alcohol abuse, uncomplicated Category: Social Hx (4) Arthritis: Code(s): M19.90 - Unspecified osteoarthritis, unspecified site Category: Medical (5) Asthma: Code(s): J45.909 - Unspecified asthma, uncomplicated Category: Medical Qualifiers: Asthma severity: mild Asthma persistence: intermittent Asthma complication type: uncomplicated Qualified Code(s): J45.20 - Mild intermittent asthma, uncomplicated (6) Right wrist pain: Code(s): M25.531 - Pain in right wrist Category: Medical Plan The plan includes obtaining a lumbar spine x-ray to assess any changes contributing to the patient's neuropathy and lumbar spondylolisthesis symptoms. A referral to a hand specialist at [facility] will be made for further evaluation of wrist pain and potential interventions. The patient will continue with his current alcohol treatment program but will also be referred to an in-person addiction medicine specialist for more personalized care. Blood work will be conducted to monitor overall health status, and a complete physical examination will be scheduled in the coming weeks. In addition, a referral was placed for counseling. Patient was informed and verbally consented to the use of an ambient scribe for clinic note documentation during this visit. Orders: Orders Lipid Panel 06/05/25 M45.9 - Ankylosing spondylitis of unspecified sites in spine, M47.27 - Other spondylosis with radiculopathy, lumbosacral region, M47.812 - Spondylosis without myelopathy or radiculopathy, cervical region, Z00.00 - Encounter for general adult medical examination without abnormal findings UA CC w/rflx Micro + Cult 06/05/25 M45.9 - Ankylosing spondylitis of unspecified sites in spine, M47.27 - Other spondylosis with radiculopathy, lumbosacral region, M47.812 - Spondylosis without myelopathy or radiculopathy, cervical region, Z00.00 - Encounter for general adult medical examination without abnormal findings TSH reflex Free T4 06/05/25 M45.9 - Ankylosing spondylitis of unspecified sites in spine, M47.27 - Other spondylosis with radiculopathy, lumbosacral region, M47.812 - Spondylosis without myelopathy or radiculopathy, cervical region, Z00.00 - Encounter for general adult medical examination without abnormal findings Vitamin D 25-OH Total 06/05/25 M45.9 - Ankylosing spondylitis of unspecified sites in spine, M47.27 - Other spondylosis with radiculopathy, lumbosacral region, M47.812 - Spondylosis without myelopathy or radiculopathy, cervical region, Z00.00 - Encounter for general adult medical examination without abnormal findings PSA,Total (Free>4and<10) 06/05/25 M45.9 - Ankylosing spondylitis of unspecified sites in spine, M47.27 - Other spondylosis with radiculopathy, lumbosacral region, M47.812 - Spondylosis without myelopathy or radiculopathy, cervical region, Z00.00 - Encounter for general adult medical examination without abnormal findings Complete Blood Count Auto Diff 06/05/25 M45.9 - Ankylosing spondylitis of unspecified sites in spine, M47.27 - Other spondylosis with radiculopathy, lumbosacral region, M47.812 - Spondylosis without myelopathy or radiculopathy, cervical region, Z00.00 - Encounter for general adult medical examination without abnormal findings Comprehensive [place]. Panel Fast 06/05/25 M45.9 - Ankylosing spondylitis of unspecified sites in spine, M47.27 - Other spondylosis with radiculopathy, lumbosacral region, M47.812 - Spondylosis without myelopathy or radiculopathy, cervical region, Z00.00 - Encounter for general adult medical examination without abnormal findings XR lumbar spine 2-3V Today M43.16 - Spondylolisthesis, lumbar region Referrals Orthopedics Referral M19.90 - Unspecified osteoarthritis, unspecified site Addiction Medicine Referral F10.10 - Alcohol abuse, uncomplicated Counseling Referral F41.9 - Anxiety disorder, unspecified
[2025-06-05 10:36] VITALS: BP 150/82; PULSE 57; RESP 18; TEMP 36.3; O2SAT 96; BMI 25.3
[2025-06-05 11:17] VITALS: BP 144/92
--- OUTSIDE RECORDS SUMMARY | 2025-06-05 11:41 | XMS_ITS | Encounter Summary ---
Author Organization Formerly [facility] Address [address] [place] [address] [place] [id number] Phone Care Team Providers Care Electric Organ Assembler And Checker Name Role Phone Rosaura Kline CERT PHARMACY TECH Primary Care Provider [phone] Unknown, Unknown Primary Care Provider Bronson Lewis PA-C Primary Care Provider [phone] Pcp, Unknown Primary Care Provider Unavailabl e Encounter Details Date Type Department Care Team (Late st Contact Info) Description 10/04/2018 Procedure Pass [facility], [address] [address] Social History Tobacco Use Types Packs/Day Years Used Date Smoking Tobacco: Former Cigarettes 1 4 1 10/18/2008 - 08/18/2013 Cigars Smokeless Tobacco: Never Alcohol Use Standard Drinks/Week Comments No 0 (1 standard drink = 0.6 oz pur e alcohol) no ETOH since 2012 Sex and Gender Information Value Date Recorded Sex Assigned at Male 07/21/2023 8:49 AM EDT Legal Sex Male 9:46 PM EDT Gender Identity Male 07/21/2023 8:49 AM EDT Sexual Orientation Straight 07/21/2023 8: 49 AM EDT documented as of this encounter Plan of Treatment Not on file documented as of this encounter Visit Diagnoses Not on filedocumented in this encounter Additional Health Concerns Assessment Noted Time PHQ-2 Depression Total Score: 0 09/15/20 18 11:33 AM EST documented as of this encounter Care Teams Electric Organ Assembler And Checker Relationship Specialty Start Date End Date Rosaura Kline NP [email or web address] PCP - General Family Medicine 11/16/17 01/12/24 Unknown, MD Deborah PCP - General 01/13/24 11/19/24 Bronson Soto PA-C [address] [place] [id number] [email or web address] PCP - General Physician Electricity Trader 11/20/24 12/06/24 Pcp, Unknown PCP - General 02/15/25 documented as of this encounter Additional Source Comments The information contained in this document represents components of the legal health record. It is not the complete legal health record.Formerly [facility]
--- OUTSIDE RECORDS SUMMARY | 2025-06-05 11:41 | XMS_ITS | Clinical Summary ---
Author Organization [employer] Address [address] [place] [address] Care Team Providers Care Tunnel Miner Name Role Phone Unavailable Primary Care Provider Unavailabl e Social History Tobacco Use Types Packs/Day Years Used Date Smoking Tobacco: Never Assessed Sex and Gender Information Value Date Recorded Sex Assigned at Not on file Legal Sex Male 12:40 PM EDT Gender Identity Not on file Sexual Orientation Not on file Plan of Treatment Health Maintenance Due Date Last Done Comments CT Colonography 1961 Colonoscopy 1961 Colorectal Cancer Screening 1961 Depression Screening 1961 FIT DNA/Cologuard 1961 FIT 1961 FOBT 1961 HIV Screening 1961 Lipid Panel 1961 SDOH Screening 1961 Sigmoidoscopy 1961 Disability Screening 1961 Alcohol/Substance Use Screening 1973 Tobacco Screening 1973 Hepatitis C Screening 1979 DTaP/Tdap/Td Vaccines (1 - Tdap) 1980 Pneumococcal Vaccine: 50+ Ye ars (1 of 1 - PCV) 2011 Zoster Vaccines (1 of 2) 2011 COVID-19 Vaccine ( - 2023-2 5 season) 2024 Influenza Vaccine (#1) 2025 RSV Patients and Pa tients Aged 60 years or older (1 - 1-dose 75+ series) 2036 HIB Vaccines Aged Out No longer eligi ble based on patient's age to complete this topic HPV Vaccines Aged Out No longer eligi ble based on patient's age to complete this topic Hepatitis A Vaccines Aged Out No long er eligible based on patient's age to complete this topic Hepatitis B Vaccines Aged Out No long er eligible based on patient's age to complete this topic IPV Vaccines Aged Out No longer eligi ble based on patient's age to complete this topic Meningococcal B Vaccine Aged Out No l onger eligible based on patient's age to complete this topic Meningococcal Vaccine Aged Out No mauro rosi eligible based on patient's age to complete this topic RSV under 20 months Aged Out No longe r eligible based on patient's age to complete this topic Rotavirus Vaccines Aged Out No longer eligible based on patient's age to complete this topic
== END 2025-06-05 11:39 | disposition home or self-care (01) ==
LOC: HO.HMCH 10:23
DX: M43.16 Spondylolisthesis, lumbar region (principal); F41.9 Anxiety disorder, unspecified; F10.10 Alcohol abuse, uncomplicated; M19.90 Unspecified osteoarthritis, unspecified site; J45.20 Mild intermittent asthma, uncomplicated; M25.531 Pain in right wrist

== ENCOUNTER → 2025-06-05 10:22 | Outpatient (BNVA) | payer OTHER, SELFPAY | DX: I10 Essential (primary) hypertension (principal); M45.9 Ankylosing spondylitis of unspecified sites in spine; J45.909 Unspecified asthma, uncomplicated; M43.16 Spondylolisthesis, lumbar region; F41.9 Anxiety disorder, unspecified; F10.10 Alcohol abuse, uncomplicated; M25.531 Pain in right wrist; Z79.899 Other long term (current) drug therapy | CPT/HCPCS: 96127 ==

== ENCOUNTER 2025-06-15 13:16 | Outpatient (AMB) | payer OTHER, SELFPAY ==
[2025-06-15 13:32] VITALS: BP 126/78; PULSE 78; O2SAT 98; BMI 26.3
--- NOTE | 2025-06-15 13:32 | MHC.OFFVIS ---
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: 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 Cognitive needs: No Hearing needs: No Vision needs: Yes Review of Systems Const All systems reviewed & are unremarkable except as noted in HPI and below Physical Exam Vital Signs: Last Vital Signs Pulse 78 06/15/25 13:32 BP 126/78 06/15/25 13:32 Pulse Ox 98 06/15/25 13:32 BMI result Body Mass Index 26.3 Const General: cooperative Orientation/consciousness: patient oriented x3 HEENT Head: Yes normal to inspection Mouth: Normal oral and palatal mucosa present Eyes General: appearance normal, both eyes and all related structures Pupils: Equal, round and reactive pupils present Resp Effort & Inspection: normal respiratory effort Cardio Rate: regular rate Rhythm: regular rhythm GI Palpation (GI): Soft to palpation and nontender General: Yes no CVA tenderness Back/Spine/Pelvis Back: no CVA tenderness Skin General skin exam: no rashes or lesions noted Neuro General: patient oriented x3 Cranial nerves: Yes CN's II-XII intact bilaterally and Yes Equal, round and reactive pupils present Extrem General: Yes normal to inspection Psych Appearance: grossly normal Assessment & Plan Assessment & Plan (1) Alcohol abuse: Comment: He is interested in Naltrexone He has had antabuse in past Code(s): F10.10 - Alcohol abuse, uncomplicated Category: Social Hx Plan: Naltrexone per patient request Check LFTs See in future. Counselor GI evaluate cirrhosis if needed. Thiamine and MVI. Return in two months. 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 Tya Hart Date of last visit: within year Details: He wishes to quit drinking. He is interested in Naltrexone,had po before and helped,before drank 12 pk a day now 6-8 beers Substance Abuse History Substance Abuse History (includes route, frequency and quantity): Alcohol (as above) Age of first use: 14 Details: He started drinking in [place] as teenager binge drinking. He has continued drinking alcohol and had some periods of recovery with detox. Social History Domestic Violence concerns: none Do you have a support system?: no IV Drug Use Have you ever shared needles?: No Have you ever belonged to a needle exchange program?: No Do you buy needles at a pharmacy?: No Have you ever overdosed?: No Have you ever been hospitalized for an overdose?: No Was Naloxone administered?: Not applicable Recovery History Have you had any periods of recovery?: Yes (detox 8 times , had been [facility] Wednesday 2 1/2 weeks ) What is your longest time in recovery?: as above When was the last time you were in recovery?: as above Have you ever had inpatient treatment for your substance abuse disorder?: Yes Have you been in an inpatient detoxification program?: Yes Have you been in an inpatient Rehab/[place] house?: No Have you been in an outpatient Methadone Maintenance program?: No Have you been in an outpatient Suboxone Maintenance program?: No Have you been in an AA/NA support program?: Yes Have you had a Recovery Support Space Planner?: Yes Have you had Peer Support?: Yes Behavioral Health History Do you have a current provider? If so, who?: none diagnosis: depression History of other addictive behavior: none History of inpatient psychiatric hospitalization? If so, how many? Most Recent? Where?: none History of self harming thoughts?: No History of homicidal or suicidal intentions?: No Medical Conditions Endocarditis?: No Skin Infection: No Seizure related to withdrawal or overdose: No Head or brain injury: No Hepatitis A (if yes, have you been treated?): No Hepatitis B (if yes, have you been treated?): No Hepatitis C (if yes, have you been treated?): No HIV (if yes, have you been treated?): No Legal History History of incarceration: No Currently on parole or probation: No Court mandated programs: No Pending court cases: No DCF involvement: No
--- OUTSIDE RECORDS SUMMARY | 2025-06-15 13:34 | XMS_ITS | Encounter Summary ---
Author Organization [facility] Address [address] [place] [address] [place] [phone] Phone Care Team Providers Care Chemical Processing Equipment Repairer Name Role Phone Rosaura Kilne FOOD PROCESSING CHEMIST Primary Care Provider [phone] Unknown, Unknown Primary Care Provider Bronson Lewis PA-C Primary Care Provider [phone] Pcp, Unknown Primary Care Provider Unavailabl e Reason for Referral * MRI/CAT Scan - Closed Specialty Diagnoses / Procedures Referred By Contac t Referred To Contact Procedures MRI Spine (Bone) Outside (No Interpretation) System, Provider Not In, PhD [facility] [address] [place] [id number] Referral ID Status Reason Start Date Expiration Date Visits Re quested Visits Authorized [id number] Closed 10/27/2018 10/27/2019 1 1 Encounter Details Date Type Department Care Team (Late st Contact Info) Description 10/27/2018 Ancillary Orders [facility],Outside Imaging [address] [place] [address] System, Provider Not In, PhD [facility] [address] [place] [id number] Social History Tobacco Use Types Packs/Day Years [...] on file documented as of this encounter Results * MRI Spine (Bone) Outside (No Interpretation) (01/11/2016 12:00 AM EDT) Narrative SYSTEMGENERATED, DOCUMENTATION - 10/27/2018 9:56 AM EST This study is for PACS storage only and not for interpretation. us Provider Not In System PhD IMG OUTSIDE IMAGING W /OUT INTERPRETATION Final Result documented in this encounter Visit Diagnoses Not on filedocumented in this encounter Additional Health Concerns Assessment Noted Time PHQ-2 Depression Total Score: 0 09/15/20 18 11:33 AM EST documented as of this encounter Care Teams Chemical Processing Equipment Repairer Relationship Specialty Start Date End Date Rosaura Kline NP PCP - General Family Medicine 11/16/17 01/12/24 Unknown, Deborah, PCP - General 01/13/24 11/19/24 Bronson Soto PA-C [address] [place] [id number] PCP - General Physician Post Anesthesia Room Nurse 11/20/24 12/06/24 Pcp, Unknown PCP - General 02/15/25 documented as of this encounter Additional Source Comments The information contained in this document represents components of the legal health record. It is not the complete legal health record.[facility]
--- OUTSIDE RECORDS SUMMARY | 2025-06-15 13:34 | XMS_ITS | Clinical Summary ---
Author Organization [facility] Address [address] [facility] [address] [place] [phone] Phone Care Team Providers Care Egg Processing Supervisor Name Role Phone Pcp, Unknown Primary Care Provider Unavailabl e Allergies No known active allergies Medications tiZANidine (ZANAFLEX) 4 MG tablet Take 1 tablet (4 mg total) by mouth nightly at bedtime as needed. 90 tablet 1 05/25/2023 Active indomethacin (INDOCIN) 25 MG capsule Take 1 capsule (25 mg total) by mouth 2 (two) times a day as needed (with food). 60 capsule 11/20/2024 Active buPROPion (WELLBUTRIN XL) 150 MG ER 24 hr tablet Take 1 tablet (150 mg total) by mouth daily. 30 tablet 1 11/20/2024 Active amLODIPine (NORVASC) 10 MG tablet Take 1 tablet (10 mg total) by mouth daily. 90 tablet 11/20/2024 Active albuterol (PROAIR HFA) 90 mcg/actuation inhaler Inhale 1 puff into the lungs every 4 (four) hours as needed. 18 g 1 11/20/2024 Active cloNIDine HCL (CATAPRES) 0.1 MG tablet Take 1 tablet (0.1 mg total) by mouth 2 (two) times a day as needed. 15 tablet 11/20/2024 Active gabapentin (NEURONTIN) 300 MG capsule TAKE ONE CAPSULE BY MOUTH TWICE A DAY AND TAKE TWO CAPSULES BY MOUTH AT BEDTIME 120 capsule 11/23/2024 Active Hospital, Clinic, or Other Facility Administered Medication Ordered Dose Route Frequency Start Date End Date Status lidocaine (XYLOCAINE) 1% injection 1 mL 1 mL See Adm Inst See admin instructions 02/20/2025 Active triamcinolone acetonide (KENALOG-40) 40 mg/mL injection 40 mg 40 mg See Adm Inst See admin instructions 02/20/2025 Active Active Problems Problem Noted Date Diagnosed Date S/P cervical spinal fusion 12/24/2022 Sacroiliitis, not elsewhere classified 9 Cervical facet joint syndrome 12/26/2018 Myalgia 12/26/2018 Mild intermittent asthma without complication Assessment & Plan (11/20/2024 4:41 PM EST): Albuterol MDI as needed Chronic neck pain 03/09/2018 Arthralgia 01/04/2018 Assessment & Plan (11/20/2024 4:43 PM EST): Patient with a history of ankylosing spondylitis who also mentions that he has been having wrist pain, neck pain and feet pain which has been ongoing. He has been seen in the past by orthopedics back in February 2024 and underwent cortisone injections. Patient has not followed up since then. He mentions that he would like to go on tramadol which she has been on in the past which was prescribed by his former provider Shanae Kline however I explained to the patient that I would not be prescribing this medication and that he would need to undergo further testing. Of note he did have testing of his CRP, ESR rheumatoid factor as well as MAYRA which was noted to be positive back in 2018. He had seen a embedded software developer in the past for his ankylosing spondylitis. Patient was quite upset that I would not prescribe tramadol and states that this is what is wrong with healthcare as he is in pain and he is left to be in pain. I did explain to the patient that I am concerned about his alcohol consumption and providing him with tramadol which is a narcotic in conjunction with his drinking which could be potentially dangerous. Also other modes of pain medications such as NSAIDs or diclofenac he is unable to take because of their high risk of bleeding. I stated that this is not a good treatment giving narcotics in the setting of alcohol use. I also explained to the patient that how I practice is that I would prefer further working him up to determine if there is an underlying cause and then addressing the underlying cause. Patient may benefit going back to see Lupe for cortisone injections in his wrist. I also explained that seeing rheumatology as he did have a positive MAYRA back in 2018. On physical exam I do not see any deformities. He has strength which is good in his upper and lower extremities. No tenderness to palpation over the spinous processes. -I will obtain an MAYRA, CRP, ESR, rheumatoid factor and Lyme titers -Refer to [facility] rheumatology -After labs return if these are negative given his neck and low back pain it might be worth also referring him to [facility] for possible injections which could potentially help with some of his pain control. Assessment & Plan (01/04/2018 10:52 AM EDT): Recommended decreasing daily indomethacin intake as able. Ankylosing spondylitis of cervical region 2017 Overview (01/04/2018): Diagnosed in 1987 Ankylosing spondylitis of lumbosacral region Assessment & Plan (01/04/2018 11:01 AM EDT): Continue Duloxetine as directed. Discussed use of PRN Vicodin QHS. F/u visit with rheumatology scheduled. Depression 11/15/2017 Assessment & Plan (11/20/2024 4:37 PM EST): Patient with a history of anxiety and depression who is not followed with a therapist or psychiatrist. Patient is on Wellbutrin 150 mg daily and Cymbalta 90 mg daily. His PHQ 9 score was noted at 23. [facility] behavioral health referral placed Refills on Wellbutrin 150 mg daily and Cymbalta 90 mg daily placed. Resolved Problems Problem Noted Date Diagnosed Date Resolved Date Generalized anxiety disorder 11/15/2017 11/20/2024 Nondependent alcohol abuse, episodic 11/15/2017 11/20/2024 Immunizations Immunization Administration Dates Next Due COVID-19 (Pre-08/09) Pfizer Vaccine, mRNA, PF 07/18/2021,11/26/2020,11/05/2020 Hepatitis B Adult 10/20/2024 INFLUENZA, SPLIT VIRUS, TRIVALENT PF 10/04/2024 Influenza Quadrivalent Preservative Free IM 10/2021,07/18/2021 Influenza Quadrivalent w/ Preservative IM 2019 Influenza, Unspecified Formulation 08/21/2004 MMR 10/13/2024 Tdap 12/09/2015 Family History Medical History Relation Comments No Known Problems Brother Rheumatic fever Father Colon cancer Mother No Known Problems Sister Relation Status Comments Brother Alive Daughter Alive Father (Age 70) pneumonia Mother (Age 88) Sister Alive Social History Tobacco Use Types Packs/Day Years Used Date Smoking Tobacco: Former Cigarettes 1 27.7 0 12/15/1985 - 08/18/2013 Cigars 1985 - 1989 Passive Smoke Exposure: Never Smokeless Tobacco: Never Tobacco Cessation:Counseling Given: Not Answered Alcohol Use Standard Drinks/Week Comments Yes 40 (1 standard drink = 0.6 oz pure alcohol) 10 or more drinks, 4 or more times/week Child or Family Care Answer Date Record ed Do you have problems with on e of the following making it difficult for you to work, study, or receive health care? No 04/04/2023 Education Answer Date Recorded Are you interested in more education? Not on jessica e 04/10/2025 Are you concerned about learning? Not on file 04/10/2025 No 04/10/2025 No 04/10/2025 Food Answer Date Recorded Within the past 6 months we worried whether our food would run out before we got money to buy more. Never True 04/04/2023 Within the past 6 months the food we bought just didn't last and we didn't have enough money to get more. Never True Residential Stability Answer Date Recor ded What is your housing situation today? I have jessica sing 04/04/2023 How many times have you move d in the past 12 months? Zero (I did not move) 04/04/2023 Paying for Meds Answer Date Recorded Do you have trouble paying for medicines? No 04/04/2023 Paying Utility Bills Answer Date Record ed Do you have trouble paying your heating or elect ricity bill? No 04/04/2023 Transportation Answer Date Recorded Has the lack of transportati on kept you from medical appointments or from getting medications? No 04/04/2023 Digital Access Answer Date Recorded No 04/10/2025 No 04/10/2025 Reliable internet access at home? Not on file 04/10/2025 Device with a working camera? Not on file Intimate Partner Violence Answer Date R ecorded Denied Basic Needs Not on file 11/20/2024 In the past 12 months have y ou been in a relationship with a person who hurts, threatens, or tries to control you? No 11/20/2024 Worried food would run out Not on file 11/20 In the past 12 months have y ou been in a relationship with a person who hurts, threatens, or tries to control you? No 11/20/2024 Sex and Gender Information Value Date Recorded Sex Assigned at Male 07/21/2023 8:49 AM EDT Legal Sex Male 9:46 PM EDT Gender Identity Male 07/21/2023 8:49 AM EDT Sexual Orientation Straight 07/21/2023 8: 49 AM EDT Last Filed Vital Signs Vital Sign Reading Time Taken Comments Blood Pressure 146/78 11/20/2024 2:14 PM EST Pulse 67 11/20/2024 2:14 PM EST Temperature 36.4 C (97.5 F) 05/25/2023 3:46 PM EDT Respiratory Rate 19 11/20/2024 2:14 PM EST Oxygen Saturation 98% 11/20/2024 2:14 PM EST Inhaled Oxygen Concentration - - Weight 78.7 kg (173 lb 9.6 oz) 11/20/2024 2:14 P M EST Height 170.8 cm (5' 7.24 ) 11/20/2024 2:14 PM ES T Body Mass Index 26.99 11/20/2024 2:14 PM EST Plan of Treatment Health Maintenance Due Date Last Done Comments PNEUMOCOCCAL VACCINES (50+ years) (1 of 2 - PCV) 1980 COLOGUARD 2006 FIT TEST 2006 SIGMOIDOSCOPY 2006 VIRTUAL COLONOSCOPY 2006 LUNG CANCER SCREENING (LDCT Only) 2011 ZOSTER VACCINES (1 of 2) 2011 RSV VACCINE (1 - Risk 60-74 years 1-dose series) 2021 FOBT 10/18/2024 10/18/2023 REPEAT PHQ 12/18/2024 11/20/2024, 11/20/2024 DEPRESSION SCREENING 11/20/2025 11/20/2024, 11/20/19 25 Adult Td,Tdap Booster 12/09/2025 12/09/2015 SCREENING FOR DIABETES 04/07/2026 04/07/2023 COLONOSCOPY 02/01/2028 01/31/2018 COLORECTAL CANCER SCREENING 02/01/2028 LIPID PANEL 04/07/2028 04/07/2023, 12/17, 11/15/2017 SMOKING STATUS SCREENING (Every 5 Years) 11/20/2029 11/20/2024 HEPATITIS C SCREENING Completed 04/10/2014 HIV ONE-TIME SCREENING (18-65 YEARS) Completed 08/29/2019 COVID-19 VACCINE Completed 10/04/2024, , 07/18/2021, Additional history exists HEPATITIS A VACCINES Aged Out No long er eligible based on patient's age to complete this topic HIB VACCINES Aged Out No longer eligi ble based on patient's age to complete this topic MENINGOCOCCAL VACCINES (ACWY) Aged Out No longer eligible based on patient's age to complete this topic MENINGOCOCCAL VACCINES (B) Aged Out N o longer eligible based on patient's age to complete this topic Medical Devices Not on file Procedures Procedure Name Priority Date/Time Associated Diagnosis Comments OUTSIDE FOBT Routine 10/18/2023 LIPID PANEL Routine 04/07/2023 2:23 PM EDT Routine general medical examination at a health care facility ENDOSCOPY, COLON 01/31/2018 10:0 9 AM EDT OUTSIDE HEPATITIS C VIRUS SCREENING Routine 04/10/2014 from Last 3 Months or Most Recently Relevant to Health Maintenance Results * OUTSIDE FOBT TEST (10/18/2023) FOBT - External Neg us Historical Provider LAB BLOOD ORDERABLES Anitra l Result * (ABNORMAL) Lipid panel (04/07/2023 2:23 PM EDT) HDL 105 mg/dL [facility] Comment: Interpretation <40 mg/dL: Low HDL cholesterol (major risk factor for CHD) Greater than or equal to 60 mg/dL: High HDL cholesterol ( negative risk factor for CHD) HDL - cholesterol is affected by a number of factors, e.g. smoking, excerise, hormones, sex and age. CHOLESTEROL 258(H) 0 - 240 mg/dL [facility] TRIGLYCERIDES 84 30 - 160 mg/dL [facility] LDL 136(H) 50 - 129 mg/dL [facility] Comment: LDL levels in terms of risk for coronary heart disease: <100 mg/dL: Optimal 100-129 mg/dL: Near or above optimal 130-159 mg/dL: Borderline high 160-189 mg/dL: High >190 mg/dL: Very High CARDIAC RISK RATIO 2.5(L) 3.4 - 5.0 C [facility] Blood 04/07/2023 2:23 PM EDT 04/07/2023 2:24 PM EDT Shanae Kline NP LAB BLOOD ORDERABLES Final Resu lt [address] [address] * ENDOSCOPY, COLON (01/31/2018 10:09 AM EDT) Narrative Transcriptions Tejinder Toledo MD - 01/31/2018 10:09 AM EDT Patient Name: Addi Sutton MD:: TEJINDER TOLEDO MD, Procedure Date: 01/31/2018 10:09 AM Date of : 1960 Age: 57 Admit Type: Outpatient Gender: Male Room: [facility] Referring MD: SHANAE KLINE Exam Type: Colonoscopy Indications: Screening for colorectal malignant neoplasm Medications: Monitored Anesthesia Care Procedure: Informed consent was obtained from the patient after discussion of the indications, limitations,alternatives, benefits, and risks of the procedure. Risksspecifically discussed include but are not limited to medication reactions, missed lesions, bleeding, perforation, orthe need for emergent surgery. Throughout the procedure, the patient's blood pressure, pulse, end-tidal CO2, and oxygen saturations were monitored continuously. The Olympus pediatric variable colonoscope [id number]-[id number] was introduced through the anus and advanced to thececum, identified by appendiceal orifice and ileocecal valve.The colonoscopy was performed without difficulty. Thepatient tolerated the procedure well. The quality of the bowel preparation was excellent. The quality of the bowel preparation was evaluated using the BBPS ([place] Bowel Preparation Scale) with scores of: Right Colon = 3(entire mucosa seen well with no residual staining, small fragments of stool or opaque liquid), Transverse Colon= 3 (entire mucosa seen well with no residual staining,small fragments of stool or opaque liquid) and Left Colon = 2 (minor amount of residual staining, small fragments of stool and/or opaque liquid, but mucosa seen well). The total BBPS score equals 8. The quality of the bowel preparation was excellent. Complications: No immediate complications. Estimated blood loss:None. Findings: The perianal and digital rectal examinations werenormal. Non-bleeding internal hemorrhoids were found during retroflexion. The hemorrhoids were small. No other significant abnormalities were identified in a careful examination of the remainder of the colon. Impression: - Non-bleeding internal hemorrhoids. - No specimens collected. Recommendation: - Discharge patient to home. - Repeat colonoscopy in 10 years for screeningpurposes. TEJINDER TOLEDO MD, 01/31/2018 10:33:16 AM This report has been signed electronically. Number of Addenda: 0 Note Initiated On: 01/31/2018 10:09 AM Procedure Code(s): --- Professional --- 90563, Colonoscopy, flexible; diagnostic, including collection of specimen(s) by brushing or washing, when performed (separateprocedure) --- Technical --- 43924, Colonoscopy, flexible; diagnostic, including collection of specimen(s) by brushing or washing, when performed (separateprocedure) Diagnosis Code(s): --- Professional --- K64.8, Other hemorrhoids Z12.11, Encounter for screening for malignant neoplasm of colon --- Technical --- K64.8, Other hemorrhoids Z12.11, Encounter for screening for malignant neoplasm of colon CPT copyright 2016 [employer]. All rights reserved. The codes documented in this report are preliminary and upon fire control officer reviewmay be revised to meet current compliance requirements. [address] [place] [address] Shanae Kline NP GI PROCEDURE ORDERABLES Final R esult * Outside Hepatitis C Virus Screening (04/10/2014) Hepatitis C Screening - External Neg Historical Provider LAB BLOOD ORDERABLES Anitra l Result from Last 3 Months or Most Recently Relevant to Health Maintenance Insurance [facility] [address] [place] [address] [place] [address] [address] [address] [place] [address] [place] [address] C3 ACO [facility] C3 ACO Care Teams Egg Processing Supervisor Relationship Specialty Start Date End Date Pcp, Unknown PCP - General 02/15/25 Additional Source Comments The information contained in this document represents components of the legal health record. It is not the complete legal health record.[facility]
--- OUTSIDE RECORDS SUMMARY | 2025-06-15 13:34 | XMS_ITS | Encounter Summary ---
Author Organization [facility] Address [address] [place] [address] [place] [address] Phone Care Team Providers Care Carburizing Furnace Operator Name Role Phone Rosaura Kline FURNACE REPAIR MECHANIC Primary Care Provider [phone] Unknown, Unknown Primary Care Provider Bronson Lewis PA-C Primary Care Provider [phone] Pcp, Unknown Primary Care Provider Unavailabl e Encounter Details Date Type Department Care Team (Late st Contact Info) Description 10/27/2018 Procedure Pass [facility],Outside Imaging [address] [place], [place] [id number] Social History Tobacco Use Types Packs/Day Years [...] Diagnoses Not on filedocumented in this encounter Care Teams Carburizing Furnace Operator Relationship Specialty Start Date End Date Rosaura Kline NP [email or web address] PCP - General Family Medicine 11/16/17 01/12/24 Unknown, Unknown, PCP - General 01/13/24 11/19/24 Bronson Soto PA-C [address] [place] [address] [email or web address] PCP - General Physician Wiring Mechanic 11/20/24 12/06/24 Pcp, Unknown PCP - General 02/15/25 documented as of this encounter Additional Source Comments The information contained in this document represents components of the legal health record. It is not the complete legal health record.[facility]
--- OUTSIDE RECORDS SUMMARY | 2025-06-15 13:34 | XMS_ITS | Encounter Summary ---
Author Organization [facility] Address [address] [facility] [address] [place] [address] Phone Care Team Providers Care Tile Trimmer Name Role Phone Rosaura Kline SWEEPING COMPOUND BLENDER Primary Care Provider [phone] Unknown, Unknown Primary Care Provider Bronson Lewis PA-C Primary Care Provider [phone] Pcp, Unknown Primary Care Provider Unavailabl e Encounter Details Date Type Department Care Team (Late st Contact Info) Description 10/04/2018 Procedure Pass [facility], [address] [address] Social History Tobacco Use Types Packs/Day Years [...] documented as of this encounter Care Teams Tile Trimmer Relationship Specialty Start Date End Date Rosaura Kline NP [email or web address] PCP - General Family Medicine 11/16/17 01/12/24 Unknown, MD Deborah PCP - General 01/13/24 11/19/24 Bronson Soto PA-C [address] [place] [address] [email or web address] PCP - General Physician Beam Warper 11/20/24 12/06/24 Pcp, Unknown PCP - General 02/15/25 documented as of this encounter Additional Source Comments The information contained in this document represents components of the legal health record. It is not the complete legal health record.[facility]
--- OUTSIDE RECORDS SUMMARY | 2025-06-15 13:34 | XMS_ITS | Encounter Summary ---
Author Organization [facility] Address [address] [place] [address] Phone Care Team Providers Care Land Acquisition Specialist Name Role Phone Rosaura Kline FLIGHT TEST MECHANIC Primary Care Provider [phone] Unknown, Unknown Primary Care Provider Bronson Lewis PA-C Primary Care Provider [phone] Pcp, Unknown Primary Care Provider Unavailabl e Encounter Details Date Type Department Care Team (Late st Contact Info) Description 09/30/2018 Ancillary Orders [facility] Internal Medicine [address] [place] [address] Rosaura Kline, MARISSA [address] [facility] [address] [place] [address] [email or web address] Bilateral wrist pain Social History Tobacco Use Types Packs/Day Years [...] documented as of this encounter Results * XR WRIST 3 OR MORE VIEWS (RIGHT) (09/30/2018 1:39 PM EST) Anatomical Region Laterality Modality Wrist Right Radiographic Carisa ging 09/30/2018 1:49 PM EST Impressions 09/30/2018 1:52 PM EST Suspect prior injury to the distal navicular bone. Degenerative changes in the navicular-distal carpal articulation are present along with joint space narrowing and mild sclerosis in the lunate-capitate articulation. Slight scapholunate separation also evident. Degenerative change in the distal radius-navicular articulation is also present with joint space narrowing. No osteopenia or erosive changes are seen. S/S: History of inflammatory arthritis, chronic wrist pain POS - [id number] Narrative 09/30/2018 1:52 PM EST COMPARISON: None FINDINGS: 3 views of the right wrist are obtained. There is a deformity of the distal navicular bone suggesting possible prior injury with minor spurring in the navicular articulation with the distal carpal row. There is also joint space narrowing between the lunate bone in the capitate bone consistent with degenerative change with mild scapholunate disassociation suggested. Procedure Note Isaac Hernandez MD - 09/30/2018 COMPARISON: None FINDINGS: 3 views of the right wrist are obtained. There is a deformity of the distal navicular bone suggesting possibleprior injury with minor spurring in the navicular articulation with thedistal carpal row. There is also joint space narrowing between the lunatebone in the capitate bone consistent with degenerative change with mildscapholunate disassociation suggested. IMPRESSION: Suspect prior injury to the distal navicular bone. Degenerative changes inthe navicular-distal carpal articulation are present along with jointspace narrowing and mild sclerosis in the lunate-capitate articulation.Slight scapholunate separation also evident. Degenerative change in thedistal radius-navicular articulation is also present with joint spacenarrowing. No osteopenia or erosive changes are seen. S/S: History of inflammatory arthritis, chronic wrist pain POS - [id number] us Rosaura Kline NP IMG XR UPPER EXTREMITY Final Re sult * XR WRIST 3 OR MORE VIEWS (LEFT) (09/30/2018 1:39 PM EST) Anatomical Region Laterality Modality Wrist Left Radiographic Carisa ging 09/30/2018 1:52 PM EST Impressions 09/30/2018 1:59 PM EST Mild degenerative changes in the radius-navicular articulation with slight joint space narrowing-less prominent than evident in the right wrist. Suspect old triquetral fracture. S/S: Chronic wrist pain POS - [id number] Narrative 09/30/2018 1:59 PM EST COMPARISON: None FINDINGS: 3 views of the left wrist are obtained. There is a well-corticated bony density evident dorsal to the carpal bones suggesting a possible old triquetral injury. Mild scapholunate dissociation suggested with slight joint space narrowing related of the articulation of the distal radius with the navicular bone. This is much less prominent than evident on the right. The exam is otherwise unremarkable. Procedure Note Isaac Hernandez MD - 09/30/2018 COMPARISON: None FINDINGS: 3 views of the left wrist are obtained. There is a well-corticated bony density evident dorsal to the carpal bonessuggesting a possible old triquetral injury. Mild scapholunate dissociation suggested with slight joint space narrowingrelated of the articulation of the distal radius with the navicular bone.This is much less prominent than evident on the right. The exam is otherwise unremarkable. IMPRESSION: Mild degenerative changes in the radius-navicular articulation with slightjoint space narrowing-less prominent than evident in the right wrist. Suspect old triquetral fracture. S/S: Chronic wrist pain POS - [id number] Rosaura Kline NP IMG XR UPPER EXTREMITY Final Re sult documented in this encounter Visit Diagnoses Diagnosis Bilateral wrist pain Bilateral wrist pain documented in this encounter Additional Health Concerns Assessment Noted Time PHQ-2 Depression Total Score: 0 09/15/20 18 11:33 AM EST documented as of this encounter Care Teams Land Acquisition Specialist Relationship Specialty Start Date End Date Rosaura Kline NP [email or web address] PCP - General Family Medicine 11/16/17 01/12/24 Unknown, Deborah, PCP - General 01/13/24 11/19/24 Bronson Soto PA-C [address] [place] [address] [email or web address] PCP - General Physician Cane Piler 11/20/24 12/06/24 Pcp, Unknown PCP - General 02/15/25 documented as of this encounter Additional Source Comments The information contained in this document represents components of the legal health record. It is not the complete legal health record.[facility]
--- OUTSIDE RECORDS SUMMARY | 2025-06-15 13:34 | XMS_ITS | Clinical Summary ---
Author Organization [employer] Address [address] [facility] 7t [place] [address] Care Team Providers Care Associate Business Analyst Name Role Phone Unavailable Primary Care Provider [...]
--- OUTSIDE RECORDS SUMMARY | 2025-06-15 13:34 | XMS_ITS | Encounter Summary ---
Author Organization [facility] Address [address] [place] [address] [place] [address] Phone Care Team Providers Care Chip Washer Name Role Phone Rosaura Kline HOME SERVICE DIRECTOR Primary Care Provider [phone] Unknown, Unknown Primary Care Provider Bronson Lewis PA-C Primary Care Provider [phone] Pcp, Unknown Primary Care Provider Unavailabl e Encounter Details Date Type Department Care Team (Late st Contact Info) Description 10/20/2018 Procedure Pass [facility], [address] [address] Social History Tobacco Use Types Packs/Day Years [...] documented as of this encounter Care Teams Chip Washer Relationship Specialty Start Date End Date Rosaura Kline NP [email or web address] PCP - General Family Medicine 11/16/17 01/12/24 Unknown, MD Deborah PCP - General 01/13/24 11/19/24 Bronson Soto PA-C [address] [place] [address] [email or web address] PCP - General Physician Gas Welder Apprentice 11/20/24 12/06/24 Pcp, Unknown PCP - General 02/15/25 documented as of this encounter Additional Source Comments The information contained in this document represents components of the legal health record. It is not the complete legal health record.[facility]
--- OUTSIDE RECORDS SUMMARY | 2025-06-15 13:35 | XMS_ITS | Encounter Summary ---
Author Organization [facility] Address [address] [place] [address] Phone Care Team Providers Care Auto Club Safety Program Coordinator Name Role Phone Rosaura Kline MANAGER MAC Primary Care Provider [phone] Unknown, Unknown Primary Care Provider Bronson Lewis PA-C Primary Care Provider [phone] Pcp, Unknown Primary Care Provider Unavailabl e Encounter Details Date Type Department Care Team (Late st Contact Info) Description 10/02/2022 Procedure Pass [facility], [address] [place] [address] Social History Tobacco Use Types Packs/Day Years Used Date Smoking Tobacco: Former Cigarettes 1 27.7 0 12/15/1985 - 08/18/2013 Cigars Smokeless Tobacco: Never Alcohol Use Standard Drinks/Week Comments Yes 42 (1 standard drink = 0.6 oz pu re alcohol) 6 drinks daily Sex and Gender Information Value Date Recorded [...] encounter Additional Health Concerns Assessment Noted Time PHQ-9 Depression Total Score: 13 021 10:30 PM EST PHQ-2 Depression Total Score: 1 11/12/19 22 12:08 PM EST documented as of this encounter Care Teams Auto Club Safety Program Coordinator Relationship Specialty Start Date End Date Rosaura Kline NP [email or web address] PCP - General Family Medicine 11/16/17 01/12/24 Unknown, Deborah, PCP - General 01/13/24 11/19/24 Bronson Soto PA-C [address] [place] [address] [email or web address] PCP - General Physician Fiscal Manager 11/20/24 12/06/24 Pcp, Unknown PCP - General 02/15/25 documented as of this encounter Additional Source Comments The information contained in this document represents components of the legal health record. It is not the complete legal health record.[facility]
--- OUTSIDE RECORDS SUMMARY | 2025-06-15 13:35 | XMS_ITS | Encounter Summary ---
Author Organization [facility] Address [address] [place] [address] [place] [address] Phone Care Team Providers Care Preprint Analyst Name Role Phone Rosaura Kline ORTHODONTIC BAND MAKER Primary Care Provider [phone] Unknown, Unknown Primary Care Provider Bronson Lewis PA-C Primary Care Provider [phone] Pcp, Unknown Primary Care Provider Unavailabl e Encounter Details Date Type Department Care Team (Late st Contact Info) Description 01/31/2018 Procedure Pass [facility] Admitting Dept Virtual Department [address] [place] [address] Social History Tobacco Use Types Packs/Day Years Used Date Smoking Tobacco: Former Smokeless Tobacco: Never Alcohol Use Standard Drinks/Week [...] Noted Time PHQ-2 Depression Total Score: 0 01/05/20 18 10:33 AM EDT documented as of this encounter Care Teams Preprint Analyst Relationship Specialty Start Date End Date Rosaura Kline ORTHODONTIC BAND MAKER [email or web address] PCP - General Family Medicine 11/16/17 01/12/24 Unknown, Deborah, PCP - General 01/13/24 11/19/24 Bronson Soto PA-C [address] [place] [address] [email or web address] PCP - General Physician Regulator Pin Inserter 11/20/24 12/06/24 Pcp, Unknown PCP - General 02/15/25 documented as of this encounter Additional Source Comments The information contained in this document represents components of the legal health record. It is not the complete legal health record.[facility]
--- OUTSIDE RECORDS SUMMARY | 2025-06-15 13:35 | XMS_ITS | Encounter Summary ---
Author Organization [facility] Address [address] [facility] [address] [place] [address] Phone Care Team Providers Care Creative Assistant Name Role Phone Rosaura Kline CITY COMPTROLLER Primary Care Provider [phone] Unknown, Unknown Primary Care Provider Bronson Lewis PA-C Primary Care Provider [phone] Pcp, Unknown Primary Care Provider Unavailabl e Encounter Details Date Type Department Care Team (Late st Contact Info) Description 10/02/2022 Procedure Pass [facility], [address] [place] [address] Social History Tobacco Use Types Packs/Day Years [...] documented as of this encounter Care Teams Creative Assistant Relationship Specialty Start Date End Date Rosaura Kline NP [email or web address] PCP - General Family Medicine 11/16/17 01/12/24 Unknown, Deborah, PCP - General 01/13/24 11/19/24 Bronson Soto PA-C [address] [place] [address] [email or web address] PCP - General Physician Showplace Manager 11/20/24 12/06/24 Pcp, Unknown PCP - General 02/15/25 documented as of this encounter Additional Source Comments The information contained in this document represents components of the legal health record. It is not the complete legal health record.[facility]
== END 2025-06-15 14:24 | disposition home or self-care (01) ==
LOC: HO.HCC 13:17
PROVIDERS: Visit Provider Internal Medicine
DX: F10.10 Alcohol abuse, uncomplicated (principal)
CPT/HCPCS: 99204

== ENCOUNTER 2025-08-13 13:05 | Outpatient (REF) | payer OTHER, SELFPAY ==
--- NOTE | ~2025-08-13 | XR_ITS ---
EXAMINATION: XR LUMBOSACRAL SPINE CLINICAL INFORMATION: M43.16 - Spondylolisthesis, lumbar region COMPARISON: None available. TECHNIQUE: AP and lateral views FINDINGS: There is a 12 mm anterolisthesis at L5-S1 likely secondary to spondylolysis pars interarticularis. There is endplate sclerosis decreased intervertebral disc height and vacuum phenomenon at L5-S1. No acute cortical disruption. Multilevel small marginal osteophyte formation throughout the lower thoracic and upper lumbar spine. No lytic or blastic lesions. Sclerosis both sacroiliac joints, left greater than the right side. XR/XR lumbar spine 2-3V IMPRESSION: Grade 1 anterolisthesis likely secondary to spondylolysis pars interarticularis L5-S1 resulting in pseudoarthrosis. Multilevel thoracolumbar spondylosis. Probable left-sided sacroiliitis. Electronically signed by: Alexander Kang MD 08/13/2025 01:27 PM EDT
--- OUTSIDE RECORDS SUMMARY | 2025-08-13 16:37 | XMS_ITS | Clinical Summary ---
Author Organization [employer] Address [address] [facility] 7t [place] [address] Care Team Providers Care Regional Maintenance Manager Name Role Phone Unavailable Primary Care Provider [...] COVID-19 Vaccine ( - 2023-2 5 season) 2025 Influenza Vaccine (#1) 2025 RSV Patients and [...]
--- OUTSIDE RECORDS SUMMARY | 2025-08-13 16:38 | XMS_ITS | Encounter Summary ---
Author Organization [facility] Address [address] [place] [address] [place] [address] Phone Care Team Providers Care Crm Consultant Name Role Phone Rosaura Kline COMPUTER AIDED DESIGN DRAFTER Primary Care Provider [phone] Unknown, Unknown MD Primary Care Provider Bronson Lewis PA-C Primary Care Provider [phone] Pcp, Unknown Primary Care Provider Tay Shahid COMPUTER AIDED DESIGN DRAFTER Primary Care Provider Reason for Referral * MRI/CAT Scan - Closed Specialty Diagnoses / Procedures Referred By Contac t Referred To Contact Procedures MRI Spine (Bone) Outside (No Interpretation) System, Provider Not In, PhD [facility] [address] [address] Referral ID Status Reason Start Date Expiration Date Visits Re quested Visits Authorized [id number] Closed 10/27/2018 10/27/2019 1 1 Encounter Details Date Type Department Care Team (Late st Contact Info) Description 10/27/2018 Ancillary Orders [facility],Outside Imaging [address] [place], [place] [phone] System, Provider Not In, PhD [facility] [address] [address] Social History Tobacco Use Types Packs/Day Years [...] as of this encounter Plan of Treatment Upcoming Encounters Date Type Department Care Team (Late st Contact Info) Description 09/11/2025 3:20 PM EST Office Visit [facility] Orthopedics & Sports Medicine [address] [place] [address] Lupe Cr PA-C [address] [place] [address] Orthopedics & Sports Medicine, [facility] [place] [address] 02/27/2026 10:10 AM EDT Office Visit [facility] Rheumatology [address] [place] [address] Harleen Foster MD, MPH [address] [place] [address], [address] [place] [address] documented as of this encounter Results * [...] documented as of this encounter Care Teams Crm Consultant Relationship Specialty Start Date End Date Rosaura Kline NP PCP - General Family Medicine 11/16/17 01/12/24 Unknown, Unknown, PCP - General 01/13/24 11/19/24 Bronson Soto PA-C [address] [place] [address] [email or web address] PCP - General Physician Master Barber 11/20/24 12/06/24 Pcp, Unknown PCP - General 02/15/25 08/09/25 Tay Hart NP [address] [place] [address] PCP - General Nurse Practitioner 08/10/25 documented as of this encounter Additional Source Comments The information contained in this document represents components of the legal health record. It is not the complete legal health record.[facility]
--- OUTSIDE RECORDS SUMMARY | 2025-08-13 16:38 | XMS_ITS | Encounter Summary ---
Author Organization [facility] Address [address] [place] [address] [place] [address] Phone Care Team Providers Care Saddle Tree Stitcher Name Role Phone Rosaura Kline CHILD AND FAMILY SERVICES SPECIALIST Primary Care Provider [phone] Unknown, Unknown Primary Care Provider Bronson Lewis PA-C Primary Care Provider [phone] Pcp, Unknown Primary Care Provider Tay Shahid CHILD AND FAMILY SERVICES SPECIALIST Primary Care Provider Encounter Details Date Type Department Care Team (Late st Contact Info) Description 01/31/2018 Procedure Pass [facility]oscopy Admitting Dept Virtual Department [address] [place] [phone] Social History Tobacco Use Types Packs/Day Years [...] Encounters Date Type Department Care Team (Late Contact Info) Description 09/11/2025 3:20 PM EST Office Visit [facility] Orthopedics & Sports Medicine [address] [place] [address] Lupe rC PA-C [address] [place] [address] [facility] [place] [address] 02/27/2026 10:10 AM EDT Office Visit [facility] Rheumatology [address] [place] [address] Harleen Foster MD, MPH [address] [facility], [address] [place] [address] documented as of this encounter Visit Diagnoses Not on filedocumented in this encounter Additional Health Concerns Assessment Noted Time PHQ-2 Depression Total Score: 0 01/05/20 18 10:33 AM EDT documented as of this encounter Care Teams Saddle Tree Stitcher Relationship Specialty Start Date End Date Rosaura Kline CHILD AND FAMILY SERVICES SPECIALIST PCP - General Family Medicine 11/16/17 01/12/24 Unknown, Unknown, PCP - General 01/13/24 11/19/24 Bronson Soto PA-C [address] [place] [address] PCP - General Physician Pricing Clerk 11/20/24 12/06/24 Pcp, Unknown PCP - General 02/15/25 08/09/25 Tay Hart NP [address] [place] [address] [address] [place] [address] PCP - General Nurse Practitioner 08/10/25 documented as of this encounter Additional Source Comments The information contained in this document represents components of the legal health record. It is not the complete legal health record.[facility]
--- OUTSIDE RECORDS SUMMARY | 2025-08-13 16:38 | XMS_ITS | Encounter Summary ---
Author Organization [facility] Address [address] [facility] [address] [place] [address] Phone Care Team Providers Care Gold Nib Grinder Name Role Phone Tay Hart GED INSTRUCTOR Primary Care Provider Reason for Referral * Consultation (Routine) - Pending Review Specialty Diagnoses / Procedures Referred By Michelle jose Referred To Contact System, Provider Not In, PhD [address] [address] Referral ID Status Reason Start Date Expiration Date V isits Requested Visits Authorized [id number] Pending Review 08/10/2025 08/10/2026 1 1 Encounter Details Date Type Department Care Team (Late st Contact Info) Description 08/10/2025 Transcribe Orders [facility] - Virtual Department [address] [place] [address] Tay Hart, GED INSTRUCTOR [address] [place] [address] [address] [place], [place] [phone] Social History Tobacco Use Types Packs/Day Years Used Date Smoking Tobacco: Former Cigarettes 1 27.7 0 12/15/1985 - 08/18/2013 Cigars 1985 - 1989 Passive Smoke Exposure: Never Smokeless Tobacco: Never Alcohol Use Standard Drinks/Week Comments Yes 40 [...] Description 09/11/2025 3:20 PM EST Office Visit [facility] Orthopedics & Sports Medicine [address] [place] [address] Lupe Cr PA-C [address] [place] [address] Orthoped[facility] [place] [address] [email or web address] 02/27/2026 10:10 AM EDT Office Visit [facility] Rheumatology [address] [place] [address] Harleen Foster MD, MPH [address] [facility], [facility] [address] [place] [address] [email or web address] Scheduled Referrals Name Type Priority Associated Diagnoses Order Schedule Ambulatory referral to [facility] Orthopedics - Employed Practices Outpatient Referral Routine Ordered: 08/10/2025 documented as of this encounter Visit Diagnoses Not on filedocumented in this encounter Additional Health Concerns Assessment Noted Time PHQ-9 Depression Total Score: 23 025 7:32 AM EST PHQ-2 Depression Total Score: 6 11/20/19 25 7:32 AM EST documented as of this encounter Care Teams Gold Nib Grinder Relationship Specialty Start Date End Date Tay Hart NP [address] [place] [address] [address] [place] [address] PCP - General Nurse Practitioner 08/10/25 documented as of this encounter Additional Source Comments The information contained in this document represents components of the legal health record. It is not the complete legal health record.[facility]
--- OUTSIDE RECORDS SUMMARY | 2025-08-13 16:38 | XMS_ITS | Encounter Summary ---
Author Organization [facility] Address [address] [place] [address] [place] [address] Phone Care Team Providers Care Business Broker Name Role Phone Rosaura Kline ORACLE ERP DEVELOPER Primary Care Provider [phone] Unknown, Unknown Primary Care Provider Bronson Lewis PA-C Primary Care Provider [phone] Pcp, Unknown Primary Care Provider Tay Shahid ORACLE ERP DEVELOPER Primary Care Provider Encounter Details Date Type Department Care Team (Late st Contact Info) Description 10/20/2018 Procedure Pass [facility], [address] [address] Social History Tobacco Use Types Packs/Day Years [...] Description 09/11/2025 3:20 PM EST Office Visit [facility] Orthopedics & Sports Medicine [address] [place] [address] [phone] Lupe Cr PA-C [address] [place] [address] [facility] [place] [address] 02/27/2026 10:10 AM EDT Office Visit [facility] Rheumatology [address] [place] [address] Harleen Foster MD, MPH 22 [facility], [address] [place] [address] documented as of this encounter Visit Diagnoses Not on filedocumented in this encounter Additional Health Concerns Assessment Noted Time PHQ-2 Depression Total Score: 0 09/15/20 18 11:33 AM EST documented as of this encounter Care Teams Business Broker Relationship Specialty Start Date End Date Rosaura Kline NP PCP - General Family Medicine 11/16/17 01/12/24 Unknown, Unknown, PCP - General 01/13/24 11/19/24 Bronson Soto PA-C [address] [place] [address] PCP - General Physician Dairy Nutrition Specialist 11/20/24 12/06/24 Pcp, Unknown PCP - General 02/15/25 08/09/25 Tay Hart NP [address] [place] [address] [address] [place] [address] PCP - General Nurse Practitioner 08/10/25 documented as of this encounter Additional Source Comments The information contained in this document represents components of the legal health record. It is not the complete legal health record.[facility]
--- OUTSIDE RECORDS SUMMARY | 2025-08-13 16:38 | XMS_ITS | Clinical Summary ---
Author Organization [facility] Address [address] [facility] [address] [place] [address] Phone Care Team Providers Care Bush Regenerator Name Role Phone Tay Hart CLINICAL RESEARCH TECHNICIAN Primary Care Provider Allergies No known active allergies Medications tiZANidine [...] was noted to be positive back in 2017. He had seen a non destructive testing engineer in the past for his ankylosing spondylitis. [...] rheumatoid factor and Lyme titers -Refer to [facility] rheumatology -After labs return if these are negative given his neck and low back pain it might be worth also referring him to [facility] for possible injections which [...] PHQ 9 score was noted at 23. [facility] behavioral health referral placed Refills on Wellbutrin 150 mg daily and Cymbalta 90 mg daily placed. Resolved Problems Problem Noted Date Diagnosed Date Resolved Date Generalized anxiety disorder 11/15/2017 11/20/2024 Nondependent alcohol abuse, episodic 11/15/2017 11/20/2024 Encounters Date Type Department Care Team Description 08/10/2025 Transcribe Orders [facility] Access Center - Virtual Department [address] [place] [address] Tay Hart NP 06/29/2025 Transcribe Orders [facility] Orthopedics & Sports Medicine [address] [place] [address] Tay Hart NP from Last 3 Months Immunizations Immunization Administration Dates Next Due COVID-19 [...] 11/20/2024 2:14 PM EST Plan of Treatment Upcoming Encounters Date Type Department Care Team (Late st Contact Info) Description 09/11/2025 3:20 PM EST Office Visit [facility] Orthopedics & Sports Medicine [address] [place] [address] Lupe Cr PA-C [address] [place] [address] Orthopedics & Sports Medicine, [facility] [place] [address] 02/27/2026 10:10 AM EDT Office Visit [facility] Rheumatology [address] [place] [address] Harleen Foster MD, MPH 22 [facility], [address] [place] [address] [email or web address] Health Maintenance Due Date Last Done Comments PNEUMOCOCCAL VACCINES (50+ years) (1 of 2 - PCV) 1980 COLOGUARD 2006 FIT TEST 2006 SIGMOIDOSCOPY 2006 VIRTUAL COLONOSCOPY 2006 LUNG CANCER SCREENING (LDCT Only) 2011 RSV VACCINE (1 - Risk 50-74 years 1-dose series) 2011 ZOSTER VACCINES (1 of 2) 2011 FOBT 10/18/2024 10/18/2023 REPEAT PHQ 12/18/2024 11/20/2024, 11/20/2024 INFLUENZA VACCINE (#1) 2025 , 06/18/2022, 07/18/2021, Additional history exists COVID-19 VACCINE ( season) 2025 10/04/2024, 07/06/2022, 07/18/2021, Additional history exists DEPRESSION SCREENING 11/20/2025 11/20/2024, 11/20/19 25 Adult Td,Tdap Booster 12/09/2025 12/09/2015 SCREENING FOR DIABETES 04/07/2026 04/07/2023 COLONOSCOPY 02/01/2028 01/31/2018 COLORECTAL CANCER SCREENING 02/01/2028 LIPID PANEL 04/07/2028 04/07/2023, 12/17, 11/15/2017 SMOKING STATUS SCREENING (Every 5 Years) 11/20/2029 11/20/2024 HEPATITIS C SCREENING Completed 04/10/2014 HIV ONE-TIME SCREENING (18-65 YEARS) Completed 08/29/2019 HEPATITIS A VACCINES Aged Out No long [...] EDT Routine general medical examination at a [facility] facility ENDOSCOPY, COLON 01/31/2018 10:0 9 AM EDT OUTSIDE HEPATITIS C VIRUS SCREENING Routine 04/10/2014 from Last 3 Months or Most Recently Relevant to Health Maintenance Results * OUTSIDE FOBT TEST (10/18/2023) FOBT - External Neg us Historical Provider LAB BLOOD ORDERABLES Anitra l Result * (ABNORMAL) Lipid panel (04/07/2023 2:23 PM EDT) HDL 105 mg/dL [facility] Comment: Interpretation <40 mg/dL: Low HDL cholesterol (major risk factor for CHD) Greater than or equal to 60 mg/dL: High HDL cholesterol ( negative risk factor for CHD) HDL - cholesterol is affected by a number of factors, e.g. smoking, excerise, hormones, sex and age. CHOLESTEROL 258(H) 0 - 240 mg/dL [facility] TRIGLYCERIDES 84 30 - 160 mg/dL [facility] LDL 136(H) 50 - 129 mg/dL [facility] Comment: LDL levels in terms of risk for coronary heart disease: <100 mg/dL: Optimal 100-129 mg/dL: Near or above optimal 130-159 mg/dL: Borderline high 160-189 mg/dL: High >190 mg/dL: Very High CARDIAC RISK RATIO 2.5(L) 3.4 - 5.0 C [facility] Blood 04/07/2023 2:23 PM EDT 04/07/2023 2:24 PM EDT us Shanae Kline CLINICAL RESEARCH TECHNICIAN LAB BLOOD ORDERABLES Final Resu lt [address] [address] * ENDOSCOPY, COLON (01/31/2018 10:09 AM EDT) Narrative Transcriptions Tejinder Toledo MD - 01/31/2018 10:09 AM EDT Patient Name: Addi Gomez Attending MD:: TEJINDER TOLEDO MD, Procedure Date: 01/31/2018 10:09 AM Date of : 1960 Age: 57 Admit Type: Outpatient Gender: Male Room: [place] [address] Referring MD: SHANAE KLINE Exam Type: Colonoscopy [...] bowel preparation was evaluated using the BBPS ([place] Bowel Preparation Scale) with scores of: Right [...] 10:09 AM Procedure Code(s): --- Professional --- 72634, Colonoscopy, flexible; diagnostic, including collection of specimen(s) by brushing or washing, when performed (separateprocedure) --- Technical --- 33695, Colonoscopy, flexible; diagnostic, including collection of specimen(s) by brushing or washing, when performed (separateprocedure) Diagnosis Code(s): --- Professional --- K64.8, Other hemorrhoids Z12.11, Encounter for screening for malignant neoplasm of colon --- Technical --- K64.8, Other hemorrhoids Z12.11, Encounter for screening for malignant neoplasm of colon CPT copyright 2016 [employer]. All rights reserved. The codes documented in this report are preliminary and upon driller's offsider reviewmay be revised to meet current compliance requirements. [address] [place], [place] [id number] Shanae Kline NP GI PROCEDURE ORDERABLES Final R esult * Outside Hepatitis C Virus Screening (04/10/2014) Hepatitis C Screening - External Neg Historical Provider LAB BLOOD ORDERABLES Anitra l Result from Last 3 Months or Most Recently Relevant to Health Maintenance Insurance O Member Subscriber Plan / Payer (Ef fective 2025-Present) Name:Addi Gomez Relation to Subscriber:Self Name:Addi Gomez Payer ID:Not on file Type:O [address] [facility] ACO HMO [facility] ACO [facility]MO [facility] ACO HMO [facility] ACO [facility] [address] [place], [place] [address] [place] [address] HMO Care Teams Bush Regenerator Relationship Specialty Start Date End Date Tay Hart NP [address] [place] [address] [address] [place] [address] PCP - General Nurse Practitioner 08/10/25 Additional Source Comments The information contained in this document represents components of the legal health record. It is not the complete legal health record.[facility]
--- OUTSIDE RECORDS SUMMARY | 2025-08-13 16:38 | XMS_ITS | Encounter Summary ---
Author Organization [facility] Address [address] [place] [address] [place] [address] Phone Care Team Providers Care Training Development Manager Name Role Phone Rosaura Kline HOOK AND EYE ATTACHER Primary Care Provider Unknown, Unknown Primary Care Provider Bronson Lewis PA-C Primary Care Provider [phone] Pcp, Unknown Primary Care Provider Tay Shahid HOOK AND EYE ATTACHER Primary Care Provider Encounter Details Date Type Department Care Team (Late st Contact Info) Description 10/02/2022 Procedure Pass [address] [place] [address] Social History Tobacco Use Types Packs/Day Years [...] Description 09/11/2025 3:20 PM EST Office Visit [facility] Orthopedics & Sports Medicine [address] [place] [address] [phone] Lupe Cr PA-C [address] [place] [address] Orth[facility] [place] [address] 02/27/2026 10:10 AM EDT Office Visit [facility] Rheumatology 22 [place] [address] Harleen Foster MD, MPH 22 [facility], [address] [place] [address] documented as of this encounter Visit Diagnoses Not on filedocumented in this encounter Additional Health Concerns Assessment Noted Time PHQ-9 Depression Total Score: 13 021 10:30 PM EST PHQ-2 Depression Total Score: 1 11/12/19 22 12:08 PM EST documented as of this encounter Care Teams Training Development Manager Relationship Specialty Start Date End Date Rosaura Kline HOOK AND EYE ATTACHER PCP - General Family Medicine 11/16/17 01/12/24 Unknown, Deborah, PCP - General 01/13/24 11/19/24 Bronson Soto PA-C [address] [place] [address] PCP - General Physician Senior Firewall Engineer 11/20/24 12/06/24 Pcp, Unknown PCP - General 02/15/25 08/09/25 Tay Hart NP [address] [place] [address] [address] [place] [address] PCP - General Nurse Practitioner 08/10/25 documented as of this encounter Additional Source Comments The information contained in this document represents components of the legal health record. It is not the complete legal health record.[facility]
--- OUTSIDE RECORDS SUMMARY | 2025-08-13 16:38 | XMS_ITS | Encounter Summary ---
Author Organization [facility] Address [address] [place] [address] [place] [address] Phone Care Team Providers Care Integrated Program Teacher Name Role Phone Rosaura Kline PUBLIC ADDRESS SYSTEM OPERATOR Primary Care Provider [phone] Unknown, Unknown Primary Care Provider Bronson Lewis PA-C Primary Care Provider [phone] Pcp, Unknown Primary Care Provider Tay Shahid PUBLIC ADDRESS SYSTEM OPERATOR Primary Care Provider Encounter Details Date Type Department Care Team (Late st Contact Info) Description 10/27/2018 Procedure Pass [facility],Outside Imaging [address] [place], [place] [phone] Social History Tobacco Use Types Packs/Day Years [...] Description 09/11/2025 3:20 PM EST Office Visit [facility] Orthopedics & Sports Medicine [address] [place] [address] Lupe Cr PA-C [address] [place] [address] [facility], [place], [place] [phone] 02/27/2026 10:10 AM EDT Office Visit [facility] Rheumat[place] [address] Harleen Foster MD, MPH 22 [facility], [address] [place] [address] documented as of this encounter Visit Diagnoses Not on filedocumented in this encounter Care Teams Integrated Program Teacher Relationship Specialty Start Date End Date Rosaura Kline PUBLIC ADDRESS SYSTEM OPERATOR PCP - General Family Medicine 11/16/17 01/12/24 Unknown, Unknown, PCP - General 01/13/24 11/19/24 Bronson Soto PA-C [address] [place] [address] PCP - General Physician Processing Manager 11/20/24 12/06/24 Pcp, Unknown PCP - General 02/15/25 08/09/25 Tay Hart NP [address] [place] [address] [address] [place] [address] PCP - General Nurse Practitioner 08/10/25 documented as of this encounter Additional Source Comments The information contained in this document represents components of the legal health record. It is not the complete legal health record.[facility]
--- OUTSIDE RECORDS SUMMARY | 2025-08-13 16:38 | XMS_ITS | Encounter Summary ---
Author Organization [facility] Address [address] [place] [address] [place] [address] Phone Care Team Providers Care Undertaker Assistant Name Role Phone Rosaura Kline GUM DIPPER Primary Care Provider [phone] Unknown, Unknown Primary Care Provider Bronson Lewis PA-C Primary Care Provider [phone] Pcp, Unknown Primary Care Provider Tay Shahid GUM DIPPER Primary Care Provider Encounter Details Date Type Department Care Team (Late st Contact Info) Description 10/02/2022 Procedure Pass [address] [place] [address] Social History Tobacco Use Types Packs/Day Years [...] Description 09/11/2025 3:20 PM EST Office Visit [facility] Orthopedics & Sports Medicine [address] [place] [address] [phone] Lupe Cr PA-C [address] [place] [address] [facility] [place] [address] 02/27/2026 10:10 AM EDT Office Visit [facility] Rheumatology 22 [place] [address] Harleen Foster MD, MPH 22 [facility], [address] [place] [address] documented as of this encounter Visit Diagnoses Not on filedocumented in this encounter Additional Health Concerns Assessment Noted Time PHQ-9 Depression Total Score: 13 021 10:30 PM EST PHQ-2 Depression Total Score: 1 11/12/19 22 12:08 PM EST documented as of this encounter Care Teams Undertaker Assistant Relationship Specialty Start Date End Date Rosaura Kline GUM DIPPER PCP - General Family Medicine 11/16/17 01/12/24 Unknown, Deborah, PCP - General 01/13/24 11/19/24 Bronson Soto PA-C [address] [place] [address] PCP - General Physician Regulatory Submissions Associate 11/20/24 12/06/24 Pcp, Unknown PCP - General 02/15/25 08/09/25 Tay Hart NP [address] [place] [address] [address] [place] [address] PCP - General Nurse Practitioner 08/10/25 documented as of this encounter Additional Source Comments The information contained in this document represents components of the legal health record. It is not the complete legal health record.[facility]
--- OUTSIDE RECORDS SUMMARY | 2025-08-13 16:38 | XMS_ITS | Encounter Summary ---
Author Organization [facility] Address [address] [facility] [address] [place] [address] Phone Care Team Providers Care Patient Appointment Coordinator Name Role Phone Rosaura Kline CREDIT COORDINATOR Primary Care Provider [phone] Unknown, Unknown Primary Care Provider Bronson Lewis PA-C Primary Care Provider [phone] Pcp, Unknown Primary Care Provider Tay Shahid CREDIT COORDINATOR Primary Care Provider Encounter Details Date Type Department Care Team (Late st Contact Info) Description 09/30/2018 Ancillary Orders [facility] Internal Medicine [address] [place] [address] Rosaura Kline, CREDIT COORDINATOR 26 [facility] [address] [place] [address] [email or web address] Bilateral wrist pain Social History Tobacco Use [...] Visit [facility] Orthopedics & Sports Medicine [address] [place] [address] Lupe Cr PA-C [address] [place] [address] Orthopedics & Sports Medicine, [facility] [place] [address] [email or web address] 02/27/2026 10:10 AM EDT Office Visit [facility] Rheumatology [address] [place] [address] Harleen Foster MD, MPH [address] [place] [address] [email or web address] documented as of this encounter Results * [...] S/S: Chronic wrist pain POS - [id number] us Rosaura Kline NP IMG XR UPPER EXTREMITY Final Re sult documented in this encounter Visit Diagnoses Diagnosis Bilateral wrist pain Bilateral wrist pain documented in this encounter Additional Health Concerns Assessment Noted Time PHQ-2 Depression Total Score: 0 09/15/20 18 11:33 AM EST documented as of this encounter Care Teams Patient Appointment Coordinator Relationship Specialty Start Date End Date Rosaura Kline CREDIT COORDINATOR PCP - General Family Medicine 11/16/17 01/12/24 Unknown, Unknown, PCP - General 01/13/24 11/19/24 Bronson Soto PA-C [address] [place] [address] PCP - General Physician Finishing Technician 11/20/24 12/06/24 Pcp, Unknown PCP - General 02/15/25 08/09/25 Tay Hart NP [address] [place] [address] PCP - General Nurse Practitioner 08/10/25 documented as of this encounter Additional Source Comments The information contained in this document represents components of the legal health record. It is not the complete legal health record.[facility]
--- OUTSIDE RECORDS SUMMARY | 2025-08-13 16:38 | XMS_ITS | Encounter Summary ---
Author Organization [facility] Address [address] [place] [address] [place] [address] Phone Care Team Providers Care Ingredient Scaler Helper Name Role Phone Rosaura Kline CREATIVE SERVICES COORDINATOR Primary Care Provider [phone] Unknown, Unknown Primary Care Provider Bronson Lewis PA-C Primary Care Provider [phone] Pcp, Unknown Primary Care Provider Tay Shahid CREATIVE SERVICES COORDINATOR Primary Care Provider Encounter Details Date Type Department Care Team (Late st Contact Info) Description 10/04/2018 Procedure Pass [facility], [address] [address] Social History Tobacco Use Types Packs/Day Years [...] Description 09/11/2025 3:20 PM EST Office Visit [facility] Orthopedics & Sports Medicine [address] [place] [address] [phone] Lupe Cr PA-C [address] [place] [address] [facility] [place] [address] 02/27/2026 10:10 AM EDT Office Visit [facility] Rheumatology [address] [place] [address] Harleen Foster MD, MPH 22 [facility], [address] [place] [address] documented as of this encounter Visit Diagnoses Not on filedocumented in this encounter Additional Health Concerns Assessment Noted Time PHQ-2 Depression Total Score: 0 09/15/20 18 11:33 AM EST documented as of this encounter Care Teams Ingredient Scaler Helper Relationship Specialty Start Date End Date Rosaura Kline NP PCP - General Family Medicine 11/16/17 01/12/24 Unknown, Unknown, PCP - General 01/13/24 11/19/24 Bronson Soto PA-C [address] [place] [phone] [email or web address] PCP - General Physician Social Media Manager 11/20/24 12/06/24 Pcp, Unknown PCP - General 02/15/25 08/09/25 Tay Hart NP [address] [place] [address] [address] [place] [address] PCP - General Nurse Practitioner 08/10/25 documented as of this encounter Additional Source Comments The information contained in this document represents components of the legal health record. It is not the complete legal health record.[facility]
== END 2025-08-13 13:06 | disposition home or self-care (01) ==
LOC: HO.HMGCX 13:05
DX: M43.16 Spondylolisthesis, lumbar region (principal)
CPT/HCPCS: 72100

== ENCOUNTER → 2025-08-13 13:08 | Outpatient (BNV) | payer OTHER, SELFPAY | PROVIDERS: Visit Provider Radiology Diagnostic Radiology | DX: M43.16 Spondylolisthesis, lumbar region (principal); M47.815 Spondylosis without myelopathy or radiculopathy, thoracolumbar region | CPT/HCPCS: 72100 ==

== ENCOUNTER 2025-09-11 08:15 | Outpatient (AMB) | payer OTHER, SELFPAY ==
--- NOTE | 2025-09-11 08:27 | A.OFFPC_ITS ---
Vital Signs 09/11/25 08:29 Height 5 ft 7 in Weight 163 lb 4 oz BMI 25.6 BP 122/78 Blood Pressure Location Lt brachial Position Sitting Pulse 67 Pulse Source Pulse Oximeter Temp 96.9 F Temp Source Temporal Artery Scan Pulse Oximetry (%) 97 Oxygen Delivery Method Room Air Intake Visit Reasons: Annual Exam Intake Note: Patient is here today for a physical. Solvent Recoverer Required: No Double End Sewer: Present Accompanied by: Spouse Allergies No Known Allergies Allergy (Verified 09/11/25 08:41) Medication List - Last Reconciled 09/11/25 by SALTY Black albuterol sulfate 90 mcg/actuation (ProAir HFA) 1 puff inhalation Q4-6H PRN baclofen 20 mg PO BID clonidine HCl 0.1 mg PO BID duloxetine (Cymbalta) 60 mg PO DAILY gabapentin ER 600 mg PO QPM indomethacin 50 mg PO BID naltrexone 50 mg PO DAILY 30 days Tobacco use date assessed: 09/11/25 Fall risk assessment: No Falls in past year Last assessed Fall Risk: 09/11/25 Dental Screening Dental Screen Date: 06/05/25 HPI HPI Comments History of Present Illness Details Dentist: no, long time ago, just got new insurance Eye: Hast not gone about 5 years Snellen: Right: Left: Corrected vision: yes, glasses for night driving and reading STI screening: Colonoscopy: Sylvain Roper, done this prior to covid-19 Pap Smer: PHQ-9: Flu:given in office COVID: x4 Tdap: given in office Diet:regular Exercise: Yard work left ear dark spot, question old perforation. Will send to ENT, no ear pain Requested another Addiction medicine referral The patient is a 65 year old individual presenting for management of alcohol use and a general health assessment. The patient reports an inability to stop drinking alcohol and finds that naltrexone, which was taken daily for a couple of months, was ineffective at reducing consumption or cravings. The patient previously discussed disulfiram with an product info specialist, who suggested it for as-needed use, which the patient did not find suitable. The patient also reports feeling anxious and overwhelmed by daily tasks, such as going to the grocery store, particularly after leaving work. A previous visit with an addiction medicine specialist was perceived as unproductive, leading the patient to cancel the follow-up appointment. Regarding musculoskeletal health, an x-ray of the spine showed arthritis and a forward curvature, with the patient reporting the most pain in the left sacroiliac area. The patient has an upcoming rheumatology appointment in February and is scheduled for wrist injections today, at which time the patient will also i nquire about a pending legal process specialist appointment that was delayed due to insurance issues. In terms of health maintenance, the patient has not had a dental visit in a long time but plans to schedule one with new insurance. The last eye exam was approximately five years ago, and the patient has a prescription for night driving and reading. The patient's last colonoscopy was at least five years ago, prior to the COVID-19 pandemic, and revealed no polyps; the patient's mother had a history of colon cancer. Health Maintenance The patient will have blood work performed today. An influenza vaccine and a tetanus vaccine will be administered during this visit. The patient is advised to schedule overdue dental and eye examinations. The patient will check the patient portal to determine when the next colonoscopy is due. A follow-up visit will be scheduled to review lab results and for a physical. Social History - Substance Use: The patient reports lali oing difficulty with alcohol consumption and an inability to stop drinking. - Employment: The patient is employed an d describes it as a great job. - Marital Status: The patient is and reports having an excellent relationship with the patient's . - Functional Status: Reports feeling ove rwhelmed and anxious with daily tasks outside of work. - Habits: The patient engages in yard wo rk. Results - Imaging: A prior spine X-ray showed fo rward curvature of the spine and arthritis, including in the left sacroiliac joint. 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 Depression Screening Interpretation: Negative Depression Screening Done: Yes Source: Developed by Drs. Kt Coreas, Adalgisa Jauregui, Silavno Man and colleagues, with an educational arelis from [employer]. Thrive Questionnaire Date Thrive assessed: 06/05/25 I am a: Patient What is your living situation today?: I have a steady place to live Within the past 12 months, did the food you bought not last and you didn't have the money to get more?: I choose not to answer this question Within the past 12 months, did you worry whether your food would run out before you got money to buy more?: I choose not to answer this question Do you have trouble paying for medicines?: No Do you have trouble getting transportation to medical appointments?: No Do you have trouble paying your heating and electricity bill?: No Do you have trouble taking care of your child, family member or friend?: No Do you have trouble with day-to-day activities such as bathing, preparing meals, shopping, managing finances, etc.?: No Are you currently unemployed and looking for a job?: No Are you interested in more education?: No Please select the resources that you would like help with: Food Currently or been in a relationship where the following occur: No concerns reported THRIVE Score: 0 ROGE-7 AMB Questionnaire ROGE-7 Date ROGE - 7 assessed: 06/05/25 Source: Developed by Drs. Kt Coreas, Adalgisa Jauregui, Silvano Man and colleagues, with an educational arelis from [employer]. Review of Systems Const Details: - General: Reports feeling anxious and that daily tasks can feel overwhelming. - HEENT: Denies hearing problems. - Musculoskeletal: Reports pain primarily in the left sacroiliac area. Denies headache(s) Eyes Denies loss of vision ENT Denies vertigo, Denies dizziness, Denies headache(s), Reports neck pain and Denies sore throat Card Denies chest pain, Denies leg edema and Denies lightheadedness Resp Denies cough, Denies hemoptysis and Denies wheezing GI Denies abdominal pain, Denies melena, Denies constipation, Denies diarrhea and Denies vomiting Denies dysuria, Denies urinary frequency and Denies urinary urgency Musc Reports back pain, Reports arthralgias (multiple joints -arthritis), Denies joint swelling, Reports neck pain, Reports numbness (Hands and feet) and Reports tingling (Hands and feet) Neuro Denies Abnormal speech present, Denies behavioral changes, Denies vertigo, Denies dizziness, Denies headache(s), Denies loss of vision, Denies memory loss, Reports numbness (Hands and feet) and Reports tingling (Hands and feet) Psych Reports anxiety, Denies behavioral changes, Denies depression, Denies memory loss and Denies panic attacks Riki/Lymph Denies easy bleeding and Denies easy bruising Aller/Immun Denies wheezing Physical exam (Primary Care) Vital Signs: Last Vital Signs Temp 96.9 F 09/11/25 08:29 Pulse 67 09/11/25 08:29 BP 122/78 09/11/25 08:29 Pulse Ox 97 09/11/25 08:29 Oxygen Delivery Method Room Air 09/11/25 08:29 BMI result Body Mass Index 25.6 Tobacco/Smoking Status: Tobacco use Status Tobacco use date assessed 09/11/25 09/11/25 08:34 Patient Tobacco Use Status Never used Tobacco 09/11/25 08:34 e-Cigarette/Vaping Use Never Used 09/11/25 08:34 Depression Screening Interpretation: Negative Thrive Assessment: Date of Thrive Assessment Date Thrive assessed 06/05/25 09/11/25 08:34 Currently or been in a relationship where the following occur: No concerns reported Const Other: - HEENT: Oropharynx is clear. - Otologic: Examination of the left ear reveals a dark spot on the tympanic membrane, appearing like a healed injury or scab. - Hearing is subjectively intact. - Respiratory: Lungs are clear to auscultation. General: healthy appearing, no acute distress, alert and awake Nutritional Appearance: well nourished Orientation/consciousness: oriented to person, oriented to place and oriented to time HENMT Ears: TM's normal bilaterally and TM abnormal (dark scab appearing area on left TM) General nose exam: Normal nasal mucous membranes and turbinates present Eyes Conjunctivae: conjunctivae normal Sclerae: sclerae normal Pupils: Equal, round and reactive pupils present Neck Neck: Yes no lymphadenopathy and Yes no JVD Thyroid: Thyroid normal Carotids: no bruits Resp Effort & Inspection: normal respiratory effort and not tachypneic Auscultation: no crackles, no rales, no rhonchi and no wheezes Cardio Rate: regular rate Rhythm: regular rhythm Heart sounds: no murmurs and normal S1 and S2 GI Palpation (GI): Soft to palpation, nontender, no hepatomegaly and no splenomegaly Auscultation: normal bowel sounds Skin General skin exam: no rashes or lesions noted and dry skin Neuro General: oriented to person, oriented to place and oriented to time Cranial nerves: Yes Equal, round and reactive pupils present Speech: No Abnormal speech present Gait exam (Neuro): Normal gait present Motor exam (neuro): no tremor noted Deep tendon reflexes (DTR's): Right triceps reflex intensity grade: 2+, Left triceps reflex intensity grade: 2+, Rt Biceps (C5, C6): 2+, Left biceps reflex intensity grade: 2+, Right brachioradialis reflex intensity grade: 2+, Left brachioradialis reflex intensity grade: 2+, Right patellar reflex intensity grade: 2+ and Left patellar reflex intensity grade: 2+ Extrem Right upper extremity: full ROM Left upper extremity: full ROM Right lower extremity: full ROM; no edema Left lower extremity: full ROM; no edema Psych Mental Status: mental status grossly normal Speech and movement: Normal speech and movement present Affect: normal affect Attitude: cooperative Thought process: Normal thought process present Office Procedures Flu Questionnaire Does the patient have a severe egg allergy?: No Does the patient have severe life threatening allergies?: No Does the patient have a fever or illness today?: No Has the patient ever had Guillain-Capay Syndrome?: No Has the patient ever had any past reaction to a flu shot?: No Immunizations Fluarix 8092-2800 (PF) 45 mcg (15 mcg x 3)/0.5 mL IM syringe Performing Provider: SALTY Black [facility] Administered by: KIRSTIN Sky on 09/11/25 09:04 Dose Route Admin Location Dispensed Lot Number Expiration Date [facility] Director It Project 0.5 mL IM Left Deltoid 0.5 mL [id number] 04/16/26 [id number] GLAXO SMITHKLINE VIS Given Date VIS Provided VIS Publication Date 09/11/25 Single Vaccine 24 Eligibility Eligibility Date Funding Source Not VFC Eligible 09/11/25 Private Tenivac (PF) 5 Lf unit-2 Lf unit/0.5 mL intramuscular syringe Performing Provider: SALTY Black Performing Location: [facility] Adult Primary [facility] Administered by: KIRSTIN Sky on 09/11/25 09:04 Dose Route Admin Location Dispensed Lot Number Expiration Date NDC Director It Project 0.5 mL IM Right Deltoid 0.5 mL [id number] 12/16/26 [id number] BALJINDER [employer]-PASTEUR Total Dispensed Waste 0.5 mL 0 % VIS Given Date VIS Provided VIS Publication Date 09/11/25 Single Vaccine 21 Eligibility Eligibility Date Funding Source Not VFC Eligible 09/11/25 Private Coding Level of Care Code Est Pt Prev Care 40-64y(48579) Diagnoses Annual physical exam Z00.00 Spondylolisthesis, lumbar region M43.16 Anxiety F41.9 Alcohol abuse F10.10 Arthritis M19.90 Mild intermittent asthma without complication J45.20 Asthma complication type: uncomplicated Asthma persistence: intermittent Asthma severity: mild Right wrist pain M25.531 Abnormal tympanic membrane of left ear H73.92 Time Spent (min) 37 Assessment & Plan Assessment & Plan (1) Annual physical exam: Code(s): Z00.00 - Encounter for general adult medical examination without abnormal findings Category: Medical (2) Spondylolisthesis, lumbar region: Code(s): M43.16 - Spondylolisthesis, lumbar region Category: Medical (3) Anxiety: Code(s): F41.9 - Anxiety disorder, unspecified Category: Medical (4) Alcohol abuse: Comment: He is interested in Naltrexone He has had antabuse in past Code(s): F10.10 - Alcohol abuse, uncomplicated Category: Social Hx (5) Arthritis: Code(s): M19.90 - Unspecified osteoarthritis, unspecified site Category: Medical (6) Asthma: Code(s): J45.909 - Unspecified asthma, uncomplicated Category: Medical Qualifiers: Asthma complication type: uncomplicated Asthma persistence: intermittent Asthma severity: mild Qualified Code(s): J45.20 - Mild intermi ttent asthma, uncomplicated (7) Right wrist pain: Code(s): M25.531 - Pain in right wrist Category: Medical (8) Abnormal tympanic membrane of left ear: Code(s): H73.92 - Unspecified disorder of tympanic membrane, left ear Category: Medical Plan Plan Patient was informed and verbally consented to the use of an ambient scribe for clinic note documentation during this visit. 1. Alcohol Use Disorder The patient reports ongoing struggles with alcohol use and found naltrexone to be ineffective. An urgent referral will be placed to a mental health prescriber, Macy Salazar, to evaluate medication options, possibly including an antidepressant. A referral will also be placed for a different addiction medicine specialist, as the patient had an unsatisfactory experience with a previous provider. 2. Anxiety The patient reports feeling anxious and overwhelmed with daily tasks. This will be addressed via the urgent referral to the mental health prescriber for medication management. 3. Abnormal Finding On Left Eardrum A dark spot was visualized on the patient's left tympanic membrane, which appears to be a healed injury. The patient denies any hearing issues. A referral to an ENT specialist will be placed for further evaluation. 4. Spinal Arthritis The patient has known spinal arthritis confirmed by a prior X-ray and reports pain in the left sacroiliac area. The patient has an upcoming rheumatology appointment in February and will follow up with the legal process specialist's office regarding a pending appointment. 5. Annual physical The preventative guideline reviewed with patient. Report having a colonoscopy roughly around 5 years ago and he is not sure if they told him to repeat this in 5 years or 10 years. Patient does report that his mother had colon cancer. We will obtain records from [facility]. Tdap and flu vaccine given in office today. Discussion Notes I discussed the patient's ongoing struggle with alcohol use and the ineffectiveness of naltrexone. I acknowledged the patient's unproductive experience with a previous addiction medicine provider and placed an urgent referral to Macy Salazar, a mental health prescriber, to discuss medication options, as well as a referral to a different addiction medicine clinic. I noted a dark spot on the patient's left tympanic membrane during the exam, which a colleague also visualized. Although the patient denies hearing loss, I am placing a referral to an ENT for further evaluation to be safe. We reviewed required health maintenance. I recommended and will administer a flu shot and a tetanus shot today. I instructed the patient to obtain labs today and we will schedule a follow-up physical to review the results. Patient Instructions - Please go to the lab to have your blood work drawn today. - You will receive a flu shot and a tetanus shot today in the office. - We will send referrals for you to see a mental health specialist, a new addiction medicine specialist, and an Ear, Nose, and Throat (ENT) specialist. - Please schedule appointments for a dental cleaning and an eye exam, as these are overdue. - Please check your patient portal to find out when you are due for your next c olonoscopy. - Please schedule a follow-up appointment to review your lab results. Orders: Orders Influenza [id number] Immunization Today Z23 - Encounter for immunization Td Immunization Today Z23 - Encounter for immunization Referrals Addiction Medicine Referral F10.10 - Alcohol abuse, uncomplicated Psychiatry Outpatient Consultation Service F41.9 - Anxiety disorder, unspecified Ear/Nose/Throat Referral H73.92 - Unspecified disorder of tympanic membrane, left ear
[2025-09-11 08:29] VITALS: BP 122/78; PULSE 67; TEMP 36.1; O2SAT 97; BMI 25.6
--- OUTSIDE RECORDS SUMMARY | 2025-09-11 08:29 | XMS_ITS | Encounter Summary ---
Author Organization [facility] Address [address] [facility] [address] [place] [address] Phone Care Team Providers Care Rn Social Work Name Role Phone Rosaura Kline CREATIVE RESOURCE MANAGER Primary Care Provider [phone] Unknown, Unknown Primary Care Provider Bronson Lewis PA-C Primary Care Provider [phone] Pcp, Unknown Primary Care Provider Tay Shahid CREATIVE RESOURCE MANAGER Primary Care Provider Encounter Details Date Type Department Care Team (Late st Contact Info) Description 09/30/2018 Ancillary Orders [facility] Medical [facility] Internal Medicine [address] [place] [address] Rosaura Kline, CREATIVE RESOURCE MANAGER [address] [facility] [address] [place] [address] [email or web address] Bilateral wrist pain Social History Tobacco Use [...] Description 09/11/2025 3:20 PM EST Office Visit [facility] Orthopedics & Sports Medicine [address] [place] [phone] Lupe Cr PA-C [address] [place] [address] Orthopedics & Sports Medicine, [facility] [place] [address] [email or web address] 02/27/2026 10:10 AM EDT Office Visit [facility] Rheumatology [address] [place] [address] Harleen Foster MD, MPH [address] [place] [address] [email or web address] documented as of this encounter Results * [...] documented as of this encounter Care Teams Rn Social Work Relationship Specialty Start Date End Date Rosaura Kline CREATIVE RESOURCE MANAGER PCP - General Family Medicine 11/16/17 01/12/24 Unknown, Unknown, PCP - General 01/13/24 11/19/24 Bronson Soto PA-C [address] [place] [email or web address] PCP - General Physician Sheet Writer 11/20/24 12/06/24 Pcp, Unknown PCP - General 02/15/25 08/09/25 Tay Hart NP [address] [place] [id number] PCP - General Nurse Practitioner 08/10/25 documented as of this encounter Additional Source Comments The information contained in this document represents components of the legal health record. It is not the complete legal health record.[facility]
--- OUTSIDE RECORDS SUMMARY | 2025-09-11 08:29 | XMS_ITS | Encounter Summary ---
Author Organization [facility] Address [address] [place] [address] [place] [address] Phone Care Team Providers Care Apprentice Stylist Name Role Phone Rosaura Kline SPRING COILER HAND Primary Care Provider [phone] Unknown, Unknown Primary Care Provider Bronson Lewis PA-C Primary Care Provider [phone] Pcp, Unknown Primary Care Provider Tay Shahid SPRING COILER HAND Primary Care Provider Encounter Details Date Type Department Care Team (Late st Contact Info) Description 10/04/2018 Procedure Pass [facility], [address] [address] Social History Tobacco Use Types Packs/Day Years [...] 09/11/2025 3:20 PM EST Office Visit [facility] Orthopedics & Sports Medicine [address] [place] [address] [phone] Lupe Cr PA-C [address] [place] [address] [facility] [place] [address] 02/27/2026 10:10 AM EDT Office Visit [facility] Rheumatology [address] [place] [address] Harleen Foster MD, MPH [address] [facility], [address] [place] [address] documented as of this encounter Visit Diagnoses Not on filedocumented in this encounter Additional Health Concerns Assessment Noted Time PHQ-2 Depression Total Score: 0 09/15/20 18 11:33 AM EST documented as of this encounter Care Teams Apprentice Stylist Relationship Specialty Start Date End Date Rosaura Kline NP PCP - General Family Medicine 11/16/17 01/12/24 Unknown, Unknown, PCP - General 01/13/24 11/19/24 Bronson Soto PA-C [address] [place] [phone] [email or web address] PCP - General Physician Coil Winder 11/20/24 12/06/24 Pcp, Unknown PCP - General 02/15/25 08/09/25 Tay Hart NP [address] [place] [address] [address] [place] [address] PCP - General Nurse Practitioner 08/10/25 documented as of this encounter Additional Source Comments The information contained in this document represents components of the legal health record. It is not the complete legal health record.[facility]
--- OUTSIDE RECORDS SUMMARY | 2025-09-11 08:29 | XMS_ITS | Encounter Summary ---
Author Organization [facility] Address [address] [place] [address] [place] [address] Phone Care Team Providers Care Bench Patternmaker Metal Name Role Phone Rosaura Kline RCIS Primary Care Provider [phone] Unknown, Unknown Primary Care Provider Bronson Lewis PA-C Primary Care Provider [phone] Pcp, Unknown Primary Care Provider Tay Shahid RCIS Primary Care Provider Encounter Details Date Type Department Care Team (Late st Contact Info) Description 10/27/2018 Procedure Pass [facility],Outside Imaging [address] [place], [place] [phone] Social History Tobacco Use Types Packs/Day Years [...] Description 09/11/2025 3:20 PM EST Office Visit [facility] Medical [facility] Orthopedics & Sports Medicine [address] [place] [phone] Lupe Cr PA-C [address] [place] [address] [facility], [facility], [place] [phone] 02/27/2026 10:10 AM EDT Office Visit [facility] [place] [address] Harleen Foster MD, MPH [address] [facility], [address] [place] [address] documented as of this encounter Visit Diagnoses Not on filedocumented in this encounter Care Teams Bench Patternmaker Metal Relationship Specialty Start Date End Date Rosaura Kline RCIS PCP - General Family Medicine 11/16/17 01/12/24 Unknown, Unknown, PCP - General 01/13/24 11/19/24 Bronson Soto PA-C [address] [place] [email or web address] PCP - General Physician Melt House Centrifugal Operator 11/20/24 12/06/24 Pcp, Unknown PCP - General 02/15/25 08/09/25 Tay Hart NP [address] [place] [address] [address] [place] [address] PCP - General Nurse Practitioner 08/10/25 documented as of this encounter Additional Source Comments The information contained in this document represents components of the legal health record. It is not the complete legal health record.[facility]
--- OUTSIDE RECORDS SUMMARY | 2025-09-11 08:29 | XMS_ITS | Encounter Summary ---
Author Organization [facility] Address [address] [place] [address] [place] [address] Phone Care Team Providers Care Brimmer Blocker Name Role Phone Rosaura Kline UPPER MARKER Primary Care Provider [phone] Unknown, Unknown Primary Care Provider Bronson Lewis PA-C Primary Care Provider [phone] Pcp, Unknown Primary Care Provider Tay Shahid UPPER MARKER Primary Care Provider Encounter Details Date Type Department Care Team (Late st Contact Info) Description 10/02/2022 Procedure Pass [address] [place] [address] Social History Tobacco Use Types Packs/Day Years [...] Description 09/11/2025 3:20 PM EST Office Visit [facility]ics & Sports Medicine [address] [place] [address] [phone] Lupe Cr PA-C [address] [place] [address] [facility] [place] [address] 02/27/2026 10:10 AM EDT Office Visit [facility] Rheumatology [address] [place] [address] Harleen Foster MD, MPH 22 [facility], [address] [place] [address] documented as of this encounter Visit Diagnoses Not on filedocumented in this encounter Additional Health Concerns Assessment Noted Time PHQ-9 Depression Total Score: 13 021 10:30 PM EST PHQ-2 Depression Total Score: 1 11/12/19 22 12:08 PM EST documented as of this encounter Care Teams Brimmer Blocker Relationship Specialty Start Date End Date Rosaura Kline UPPER MARKER PCP - General Family Medicine 11/16/17 01/12/24 Unknown, Deborah, PCP - General 01/13/24 11/19/24 Bronson Soto PA-C [address] [place] [address] [email or web address] PCP - General Physician Promotion Manager 11/20/24 12/06/24 Pcp, Unknown PCP - General 02/15/25 08/09/25 Tay Hart NP [address] [place] [address] [address] [place] [address] PCP - General Nurse Practitioner 08/10/25 documented as of this encounter Additional Source Comments The information contained in this document represents components of the legal health record. It is not the complete legal health record.[facility]
--- OUTSIDE RECORDS SUMMARY | 2025-09-11 08:29 | XMS_ITS | Clinical Summary ---
Author Organization [facility] Address 75 [facility] 7t [place] [address] Care Team Providers Care Safe And Vault Service Mechanic Name Role Phone Unavailable Primary Care Provider [...] of 2) 2011 COVID-19 Vaccine ( - 2024-2 6 season) 2025 Influenza Vaccine (#1) 2025 RSV [...]
--- OUTSIDE RECORDS SUMMARY | 2025-09-11 08:29 | XMS_ITS | Clinical Summary ---
Author Organization [facility] Address [address] [facility] [address] [place] [address] Phone Care Team Providers Care Starting Sheet Tank Operator Name Role Phone Tay Hart ASSOCIATE PROFESSOR OF SURGERY Primary Care Provider Allergies No known active [...] back in 2017. He had seen a morning nanny in the past for his ankylosing spondylitis. [...] rheumatoid factor and Lyme titers -Refer to [facility] rheumatology -After labs return if these are negative given his neck and low back pain it might be worth also referring him to [facility] for possible injections which [...] PHQ 9 score was noted at 23. [facility] behavioral health referral placed Refills on Wellbutrin 150 mg daily and Cymbalta 90 mg daily placed. Resolved Problems Problem Noted Date Diagnosed Date Resolved Date Generalized anxiety disorder 11/15/2017 11/20/2024 Nondependent alcohol abuse, episodic 11/15/2017 11/20/2024 Encounters Date Type Department Care Team Description 08/10/2025 Transcribe Orders [facility] [place] - [place] Department [address] [place] [address] Tay Hart NP 06/29/2025 Transcribe Orders [facility] Orthopedics & Sports Medicine [address] [place] [address] Tay Hart NP from Last 3 Months [...] 09/11/2025 3:20 PM EST Office Visit [facility] Orthopedics & Sports Medicine [address] [place] [address] Lupe Cr PA-C [address] [place] [address] Orthopedics & Sports Medicine, [facility] [place] [address] 02/27/2026 10:10 AM EDT Office Visit [facility] Rheumatology [address] [place] [address] Harleen Foster MD, MPH 22 [facility], [address] [place] [address] [email or web address] Health Maintenance Due Date Last Done Comments [...] EDT Routine general medical examination at a [facility] facility ENDOSCOPY, COLON 01/31/2018 10:0 9 AM EDT OUTSIDE HEPATITIS C VIRUS SCREENING Routine 04/10/2014 from Last 3 Months or Most Recently Relevant to Health Maintenance Results * OUTSIDE FOBT TEST (10/18/2023) FOBT - External Neg us Historical Provider LAB BLOOD ORDERABLES Anitra l Result * (ABNORMAL) Lipid panel (04/07/2023 2:23 PM EDT) HDL 105 mg/dL [facility] Comment: Interpretation <40 mg/dL: Low HDL cholesterol (major risk factor for CHD) Greater than or equal to 60 mg/dL: High HDL cholesterol ( negative risk factor for CHD) HDL - cholesterol is affected by a number of factors, e.g. smoking, excerise, hormones, sex and age. CHOLESTEROL 258(H) 0 - 240 mg/dL [facility] TRIGLYCERIDES 84 30 - 160 mg/dL [facility] LDL 136(H) 50 - 129 mg/dL [facility] Comment: LDL levels in terms of risk for coronary heart disease: <100 mg/dL: Optimal 100-129 mg/dL: Near or above optimal 130-159 mg/dL: Borderline high 160-189 mg/dL: High >190 mg/dL: Very High CARDIAC RISK RATIO 2.5(L) 3.4 - 5.0 [facility] Blood 04/07/2023 2:23 PM EDT 04/07/2023 2:24 PM EDT us Shanae Kline ASSOCIATE PROFESSOR OF SURGERY LAB BLOOD BKR ORDERABLES Final Result [address] [address] * ENDOSCOPY, COLON (01/31/2018 10:09 AM EDT) Narrative Transcriptions Tejinder Toledo MD - 01/31/2018 10:09 AM EDT Patient Name: Addi Gomez Attending MD:: TEJINDER TOLEDO MD, Procedure Date: 01/31/2018 10:09 AM Date of : 1960 Age: 57 Admit Type: Outpatient Gender: Male Room: [place] [address] Referring MD: SHANAE KLINE Exam Type: Colonoscopy [...] bowel preparation was evaluated using the BBPS ([place] Bowel Preparation Scale) with scores of: Right [...] 10:09 AM Procedure Code(s): --- Professional --- 30574, Colonoscopy, flexible; diagnostic, including collection of specimen(s) by brushing or washing, when performed (separateprocedure) --- Technical --- 92955, Colonoscopy, flexible; diagnostic, including collection of specimen(s) by brushing or washing, when performed (separateprocedure) Diagnosis Code(s): --- Professional --- K64.8, Other hemorrhoids Z12.11, Encounter for screening for malignant neoplasm of colon --- Technical --- K64.8, Other hemorrhoids Z12.11, Encounter for screening for malignant neoplasm of colon CPT copyright 2016 [employer] [place] [employer]. All rights reserved. The codes documented in this report are preliminary and upon oil burner servicer and installer reviewmay be revised to meet current compliance requirements. [address] [place], [place] [id number] Shanae Kline NP GI PROCEDURE ORDERABLES Final [...] Gomez Payer ID:Not on file Type:O [address] [facility] [employer] HMO [facility] [employer] HMO [facility] [address] [place] [place] [address] [address] HMO Care Teams Starting Sheet Tank Operator Relationship Specialty Start Date End Date Tay Hart NP [address] [place] [address] [address] [place] [address] PCP - General Nurse Practitioner 08/10/25 Additional Source Comments The information contained in this document represents components of the legal health record. It is not the complete legal health record.[facility]
--- OUTSIDE RECORDS SUMMARY | 2025-09-11 08:29 | XMS_ITS | Encounter Summary ---
Author Organization [facility] Address [address] [place] [address] [place] [address] Phone Care Team Providers Care Road Driver Name Role Phone Rosaura Kline CATALYST OPERATOR GASOLINE Primary Care Provider [phone] Unknown, Unknown Primary Care Provider Bronson Lewis PA-C Primary Care Provider [phone] Pcp, Unknown Primary Care Provider Tay Shahid CATALYST OPERATOR GASOLINE Primary Care Provider Encounter Details Date Type Department Care Team (Late st Contact Info) Description 10/20/2018 Procedure Pass [facility], [address] [address] Social History Tobacco Use Types Packs/Day Years [...] PM EST Office Visit [facility] Orthopedics & Sports Medicine [address] [place] [address] [phone] Lupe Cr PA-C [address] [place] [address] Orth[facility] [place] [address] 02/27/2026 10:10 AM EDT Office Visit [facility] Rheumatology 22 [place] [address] Harleen Foster MD, MPH 22 [facility], [address] [place] [address] documented as of this encounter Visit Diagnoses Not on filedocumented in this encounter Additional Health Concerns Assessment Noted Time PHQ-2 Depression Total Score: 0 09/15/20 18 11:33 AM EST documented as of this encounter Care Teams Road Driver Relationship Specialty Start Date End Date Rosaura Kline NP PCP - General Family Medicine 11/16/17 01/12/24 Unknown, Unknown, PCP - General 01/13/24 11/19/24 Bronson Soto PA-C [address] [place] [phone] [email or web address] PCP - General Physician Tumbler Plater 11/20/24 12/06/24 Pcp, Unknown PCP - General 02/15/25 08/09/25 Tay Hart NP [address] [place] [address] [address] [place] [address] PCP - General Nurse Practitioner 08/10/25 documented as of this encounter Additional Source Comments The information contained in this document represents components of the legal health record. It is not the complete legal health record.[facility]
--- OUTSIDE RECORDS SUMMARY | 2025-09-11 08:29 | XMS_ITS | Encounter Summary ---
Author Organization [facility] Address [address] [place] [address] [place] [address] Phone Care Team Providers Care Tobacco Drummer Name Role Phone Rosaura Kline REGIONAL SALES EXECUTIVE Primary Care Provider [phone] Unknown, Unknown MD Primary Care Provider Bronson Lewis PA-C Primary Care Provider [phone] Pcp, Unknown Primary Care Provider Tay Shahid REGIONAL SALES EXECUTIVE Primary Care Provider Reason for Referral * MRI/CAT Scan - Closed Specialty Diagnoses / Procedures Referred By Contac t Referred To Contact Procedures MRI Spine (Bone) Outside (No Interpretation) System, Provider Not In, [facility] [address] [address] Referral ID Status Reason Start Date Expiration Date Visits Re quested Visits Authorized [id number] Closed 10/27/2018 10/27/2019 1 1 Encounter Details Date Type Department Care Team (Late st Contact Info) Description 10/27/2018 Ancillary Orders [facility],Outside Imaging [address] [place], [place] [phone] System, Provider Not In, [facility] [address] [address] Social History Tobacco Use Types Packs/Day Years [...] Description 09/11/2025 3:20 PM EST Office Visit [facility] Orthopedics & Sports Medicine [address] [place] [address] Lupe Cr PA-C [address] [place] [address] Orthopedics & Sports Medicine, [place] [address] 02/27/2026 10:10 AM EDT Office Visit [facility] Rheumatology [address] [place] [address] Harleen Foster MD, MPH [address] [place] [address], [address] [place] [address] documented as of this encounter Results * [...] documented as of this encounter Care Teams Tobacco Drummer Relationship Specialty Start Date End Date Rosaura Kline NP PCP - General Family Medicine 11/16/17 01/12/24 Unknown, Unknown, PCP - General 01/13/24 11/19/24 Bronson Soto PA-C [address] [place] [address] [email or web address] PCP - General Physician Contact Printer Dry Film 11/20/24 12/06/24 Pcp, Unknown PCP - General 02/15/25 08/09/25 Tay Hrat NP [address] [place] [address] PCP - General Nurse Practitioner 08/10/25 documented as of this encounter Additional Source Comments The information contained in this document represents components of the legal health record. It is not the complete legal health record.[facility]
--- OUTSIDE RECORDS SUMMARY | 2025-09-11 08:29 | XMS_ITS | Encounter Summary ---
Author Organization [facility] Address [address] [place] [address] [place] [address] Phone Care Team Providers Care Records Management Clerk Name Role Phone Rosaura Kline SANDWICH MAKER Primary Care Provider [phone] Unknown, Unknown Primary Care Provider Bronson Lewis PA-C Primary Care Provider [phone] Pcp, Unknown Primary Care Provider Tay Shahid SANDWICH MAKER Primary Care Provider Encounter Details Date Type Department Care Team (Late st Contact Info) Description 01/31/2018 Procedure Pass [facility] Endoscopy Admitting Dept Virtual Department [address] [place] [address] [phone] Social History Tobacco Use Types Packs/Day Years [...] Description 09/11/2025 3:20 PM EST Office Visit [facility] Orthopedics & Sports Medicine [address] [place] [address] Lupe Cr PA-C [address] [place] [address] Orth[facility] [place] [address] 02/27/2026 10:10 AM EDT Office Visit [facility] Rheumatology [address] [place] [address] Harleen Foster MD, MPH 22 [facility], [address] [place] [address] documented as of this encounter Visit Diagnoses Not on filedocumented in this encounter Additional Health Concerns Assessment Noted Time PHQ-2 Depression Total Score: 0 01/05/20 18 10:33 AM EDT documented as of this encounter Care Teams Records Management Clerk Relationship Specialty Start Date End Date Rosaura Kline SANDWICH MAKER PCP - General Family Medicine 11/16/17 01/12/24 Unknown, Unknown, PCP - General 01/13/24 11/19/24 Bronson Soto PA-C [address] [place] [address] PCP - General Physician Material Manager 11/20/24 12/06/24 Pcp, Unknown PCP - General 02/15/25 08/09/25 Tay Hart NP [address] [place] [address] [address] [place] [address] PCP - General Nurse Practitioner 08/10/25 documented as of this encounter Additional Source Comments The information contained in this document represents components of the legal health record. It is not the complete legal health record.[facility]
--- OUTSIDE RECORDS SUMMARY | 2025-09-11 08:29 | XMS_ITS | Encounter Summary ---
Author Organization [facility] Address [address] [place] [address] [place] [address] Phone Care Team Providers Care Metal Storage Worker Name Role Phone Rosaura Kline BANK CASHIER Primary Care Provider [phone] Unknown, Unknown Primary Care Provider Bronson Lewis PA-C Primary Care Provider [phone] Pcp, Unknown Primary Care Provider Tay Shahid BANK CASHIER Primary Care Provider Encounter Details Date Type Department Care Team (Late st Contact Info) Description 10/02/2022 Procedure Pass [address] [place] [address] Social History Tobacco Use Types Packs/Day Years [...] Description 09/11/2025 3:20 PM EST Office Visit [facility] Orthopedics & Sports Medicine [address] [place] [address] [phone] Lupe Cr PA-C [address] [place] [address] Orth[facility] [place] [address] 02/27/2026 10:10 AM EDT Office Visit [facility] Rheumatology [address] [place] [address] Harleen Foster MD, MPH 22 [facility], [address] [place] [address] documented as of this encounter Visit Diagnoses Not on filedocumented in this encounter Additional Health Concerns Assessment Noted Time PHQ-9 Depression Total Score: 13 021 10:30 PM EST PHQ-2 Depression Total Score: 1 11/12/19 22 12:08 PM EST documented as of this encounter Care Teams Metal Storage Worker Relationship Specialty Start Date End Date Rosaura Kline BANK CASHIER PCP - General Family Medicine 11/16/17 01/12/24 Unknown, Deborah, PCP - General 01/13/24 11/19/24 Bronson Soto PA-C [address] [place] [address] PCP - General Physician Supervisor [employer] 11/20/24 12/06/24 Pcp, Unknown PCP - General 02/15/25 08/09/25 Tay Hart NP [address] [place] [address] [address] [place] [address] PCP - General Nurse Practitioner 08/10/25 documented as of this encounter Additional Source Comments The information contained in this document represents components of the legal health record. It is not the complete legal health record.[facility]
== END 2025-09-11 09:18 | disposition home or self-care (01) ==
LOC: HO.HMCH 08:16
DX: Z00.00 Encounter for general adult medical examination without abnormal findings (principal); M43.16 Spondylolisthesis, lumbar region; F41.9 Anxiety disorder, unspecified; F10.10 Alcohol abuse, uncomplicated; M19.90 Unspecified osteoarthritis, unspecified site; J45.20 Mild intermittent asthma, uncomplicated; M25.531 Pain in right wrist; H73.92 Unspecified disorder of tympanic membrane, left ear; Z23 Encounter for immunization

== ENCOUNTER 2025-09-11 08:15 | Outpatient (REF) | payer OTHER, SELFPAY ==
[2025-09-11 09:41] LABS: MANUAL DIFF FLAG NO
[2025-09-11 10:09] LABS: Hematocrit 43.4 % (42.0-52.0); Hemoglobin 15.0 g/dl (14.0-18.0); Imm Gran Abs Auto 0.02 X10*3/uL (0.00-0.03); Imm Gran Pct Auto 0.5 % (0.0-0.4); Lymphocytes Absolute Auto 1.0 X10*3/uL (1.2-4.9); Mean Corpuscular HGB Conc 34.6 g/dl (31.0-36.0); Mean Corpuscular Hemoglobin 34.0 pg (27.0-33.0); Mean Corpuscular Volume 98.4 fL (80.0-98.0); NRBC Abs Auto 0.000 X10*3/uL (0.0-0.012); NRBC Pct Auto 0.0 /100WBC (0.0-0.2); Platelet Count 269 X10*3/uL (160-400); Red Blood Count 4.41 X10*6/uL (4.60-5.80); White Blood Count 4.3 X10*3/uL (4.8-10.8)
[2025-09-11 10:22] LABS: Appearance Urine Clear; Glucose Urine UA Negative (Negative); PH 6.0 (5.0-9.0); Specific Gravity - Urine 1.020 (1.005-1.025)
[2025-09-11 10:45] LABS: Alanine Aminotransferase 42 U/L (0-40); Albumin Level 4.5 g/dL (3.5-5.0); Alkaline Phosphatase 60 U/L (39-117); Anion Gap 9 (12-20); Aspartate Amino Transferase 34 U/L (5-37); Blood Urea Nitrogen 15 mg/dL (9-16); Calcium 9.4 mg/dL (8.4-10.2); Carbon Dioxide 32 mmol/L (22-29); Chloride 106 mmol/L (96-108); Cholesterol 251 mg/dL (<200); Estimated Glomerular Filt Rate > 60; HDL Cholesterol 66 mg/dL (>40); Potassium 4.6 mmol/L (3.3-5.1); Sodium 142 mmol/L (135-145); Total Protein 7.3 g/dL (6.5-8.0); Triglycerides 72 mg/dL (<150)
[2025-09-11 11:00] LABS: PSA,Total (Free>4and<10) 0.62 ng/mL (0.00-4.00)
[2025-09-19 01:03] LABS: FIB-ALT 28 U/L (9-46); FIB-Alpha-2-Macroglobulin 136 mg/dL (106-279); FIB-Apolipoprotein A1 189 mg/dL (94-176); FIB-GGT 21 U/L (3-70); FIB-Haptoglobin 118 mg/dL (43-212); FIB-Total Bilirubin 0.5 mg/dL (0.2-1.2); Liver Fibrosis Score 0.10; Liver Fibrosis Stage F0; Nec Inflam Act Grade A0; Nec Inflam Act Score 0.10
== END 2025-09-11 08:16 | disposition home or self-care (01) ==
LOC: HO.LAB 08:15
PROVIDERS: Internal Medicine
DX: Z00.00 Encounter for general adult medical examination without abnormal findings (principal); F10.10 Alcohol abuse, uncomplicated; M45.9 Ankylosing spondylitis of unspecified sites in spine; M47.27 Other spondylosis with radiculopathy, lumbosacral region; M47.812 Spondylosis without myelopathy or radiculopathy, cervical region; F32.9 Major depressive disorder, single episode, unspecified; M43.16 Spondylolisthesis, lumbar region; M19.90 Unspecified osteoarthritis, unspecified site; J45.20 Mild intermittent asthma, uncomplicated; M25.531 Pain in right wrist; H73.92 Unspecified disorder of tympanic membrane, left ear; Z23 Encounter for immunization; Z12.5 Encounter for screening for malignant neoplasm of prostate
CPT/HCPCS: 36415; 80053; 80061; 80076; 81003; 81596; 82248; 82306; 84153; 84443; 85025; 90471; 90472; 90656; 90714

== ENCOUNTER 2025-10-12 15:20 | Outpatient (AMB) | payer OTHER, SELFPAY ==
[2025-10-12 15:23] VITALS: BP 130/80; PULSE 63; TEMP 36.2; O2SAT 98; BMI 26.3
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
--- OUTSIDE RECORDS SUMMARY | 2025-10-12 15:23 | XMS_ITS | Clinical Summary ---
Author Organization [facility] Address 75 [facility] 7t [place] [address] Care Team Providers Care Lamp Developer Name Role Phone Unavailable Primary Care Provider [...]
--- OUTSIDE RECORDS SUMMARY | 2025-10-12 15:23 | XMS_ITS | Encounter Summary ---
Author Organization [facility] Address [address] [place] [address] [place] [address] Phone Care Team Providers Care Brush Finisher Name Role Phone Rosaura Kline DAM WORKER Primary Care Provider [phone] Unknown, Unknown Primary Care Provider Bronson Lewis PA-C Primary Care Provider [phone] Pcp, Unknown Primary Care Provider Tay Shahid DAM WORKER Primary Care Provider Encounter Details Date Type Department Care Team (Late st Contact Info) Description 10/02/2022 Procedure Pass [address] [place] [address] Social History Tobacco Use Types Packs/Day Years [...] Care Team (Late st Contact Info) Description 02/27/2026 10:10 AM EDT Office Visit [facility] [address] [place] [address] Harleen Foster MD, MPH 22 [facility], [address] [place] [address] [email or web address] documented as of this encounter Visit Diagnoses Not on filedocumented in this encounter Additional Health Concerns Assessment Noted Time PHQ-9 Depression Total Score: 13 021 10:30 PM EST PHQ-2 Depression Total Score: 1 11/12/19 22 12:08 PM EST documented as of this encounter Care Teams Brush Finisher Relationship Specialty Start Date End Date Rosaura Kline, DAM WORKER [email or web address] PCP - General Family Medicine 11/16/17 01/12/24 Unknown, Unknown, PCP - General 01/13/24 11/19/24 Bronson Soto PA-C [address] [place] [address] [email or web address] PCP - General Physician Lowerator Operator 11/20/24 12/06/24 Pcp, Unknown PCP - General 02/15/25 08/09/25 Tay Hart NP [address] [place] [address] [address] [place] [address] PCP - General Nurse Practitioner 08/10/25 documented as of this encounter Additional Source Comments The information contained in this document represents components of the legal health record. It is not the complete legal health record.[facility]
--- OUTSIDE RECORDS SUMMARY | 2025-10-12 15:23 | XMS_ITS | Clinical Summary ---
Author Organization [facility] Address [address] [place] [address] Phone Care Team Providers Care Junior Web Designer Name Role Phone Tay Hart SKI BINDING FITTER AND REPAIRER Primary Care Provider Allergies No known active allergies Medications tiZANidine (ZANAFLEX) 4 MG tablet Take 1 tablet (4 mg total) by mouth nightly at bedtime as needed. 90 tablet 1 05/25/2023 Active albuterol (PROAIR HFA) 90 mcg/actuation inhaler [...] back in 2018. He had seen a underwear finisher in the past for his ankylosing spondylitis. [...] rheumatoid factor and Lyme titers -Refer to [facility] rheumatology -After labs return if these are negative given his neck and low back pain it might be worth also referring him to [facility] for possible injections which [...] PHQ 9 score was noted at 23. [facility] behavioral health referral placed Refills on Wellbutrin 150 mg daily and Cymbalta 90 mg daily placed. Resolved Problems Problem Noted Date Diagnosed Date Resolved Date Generalized anxiety disorder 11/15/2017 11/20/2024 Nondependent alcohol abuse, episodic 11/15/2017 11/20/2024 Encounters Date Type Department Care Team Description 09/11/2025 3:20 PM EST Office Visit [facility] [address] [place] [address] Lupe Cr PA-C Slac (scapholunate advanced collapse) of wrist, right (Primary Dx) 08/10/2025 Transcribe Orders [facility] [place] - [place] Department [address] [place] [address] Tay Hart NP from Last 3 Months Immunizations Immunization Administration Dates Next Due COVID-19 (Pre-08/09) Pfizer Vaccine, mRNA, PF 07/18/2021,11/26/2020,11/05/2020 Hepatitis B Adult 10/20/2024 INFLUENZA, SPLIT VIRUS, TRIVALENT PF 10/04/2024 Influenza Quadrivalent Preservative Free IM 09/0 10/2021,07/18/2021 Influenza Quadrivalent w/ Preservative IM 2019 [...] Description 02/27/2026 10:10 AM EDT Office Visit [facility] [address] [place] [address] Harleen Foster MD, MPH 22 [facility], [address] [place] [address] [email or web address] Health Maintenance Due Date Last Done Comments PNEUMOCOCCAL VACCINES (50+ years) (1 of 2 - PCV) 1980 COLOGUARD 2006 FIT TEST 2006 SIGMOIDOSCOPY 2006 VIRTUAL COLONOSCOPY 2006 LUNG CANCER SCREENING (LDCT Only) 2011 RSV VACCINE (1 - Risk 50-74 years 1-dose series) 2011 ZOSTER VACCINES (1 of 2) 2011 FOBT 10/18/2024 10/18/2023 REPEAT PHQ 12/18/2024 11/20/2024, 11/20/2024 COVID-19 VACCINE ( season) 2025 10/04/2024, 07/06/2022, 07/18/2021, Additional history exists DEPRESSION SCREENING 11/20/2025 11/20/2024, 11/20/19 SCREENING FOR DIABETES 04/07/2026 04/07/2023 COLONOSCOPY 02/01/2028 01/31/2018 COLORECTAL CANCER SCREENING 02/01/2028 LIPID PANEL 04/07/2028 04/07/2023, 0301/2021, 11/15/2017 SMOKING STATUS SCREENING (Every 5 Years) 11/20/2029 11/20/2024 Adult Td,Tdap Booster 09/11/2035 09/11/2025, 016 HEPATITIS C SCREENING Completed 04/10/2014 HIV ONE-TIME SCREENING (18-65 YEARS) Completed 08/29/2019 INFLUENZA VACCINE Completed 09/11/2025, , 06/18/2022, Additional history exists HEPATITIS A VACCINES Aged [...] EDT Routine general medical examination at a [facility] care facility ENDOSCOPY, COLON 01/31/2018 10:0 9 AM EDT OUTSIDE HEPATITIS C VIRUS SCREENING Routine 04/10/2014 from Last 3 Months or Most Recently Relevant to Health Maintenance Results * OUTSIDE FOBT TEST (10/18/2023) FOBT - External Neg us Historical Provider LAB BLOOD ORDERABLES Anitra l Result * (ABNORMAL) Lipid panel (04/07/2023 2:23 PM EDT) HDL 105 mg/dL [facility] Comment: Interpretation <40 mg/dL: Low HDL cholesterol (major risk factor for CHD) Greater than or equal to 60 mg/dL: High HDL cholesterol ( negative risk factor for CHD) HDL - cholesterol is affected by a number of factors, e.g. smoking, excerise, hormones, sex and age. CHOLESTEROL 258(H) 0 - 240 mg/dL [facility] TRIGLYCERIDES 84 30 - 160 mg/dL [facility] LDL 136(H) 50 - 129 mg/dL [facility] Comment: LDL levels in terms of risk for coronary heart disease: <100 mg/dL: Optimal 100-129 mg/dL: Near or above optimal 130-159 mg/dL: Borderline high 160-189 mg/dL: High >190 mg/dL: Very High CARDIAC RISK RATIO 2.5(L) 3.4 - 5.0 C [facility] Blood 04/07/2023 2:23 PM EDT 04/07/2023 2:24 PM EDT us Shanae Kline NP LAB BLOOD BKR ORDERABLES Final Result [address] [id number] * ENDOSCOPY, COLON (01/31/2018 10:09 AM EDT) Narrative Transcriptions Tejinder Toledo MD - 01/31/2018 10:09 AM EDT Patient Name: Addi Gomez Attending MD:: TEJINDER TOLEDO MD, Procedure Date: 01/31/2018 10:09 AM Date of : 1960 Age: 57 Admit Type: Outpatient Gender: Male Room: [facility] Referring MD: SHANAE KLINE Exam Type: Colonoscopy [...] bowel preparation was evaluated using the BBPS (Valley Bowel Preparation Scale) with scores of: Right [...] 10:09 AM Procedure Code(s): --- Professional --- 48561, Colonoscopy, flexible; diagnostic, including collection of specimen(s) by brushing or washing, when performed (separateprocedure) --- Technical --- 72489, Colonoscopy, flexible; diagnostic, including collection of specimen(s) by brushing or washing, when performed (separateprocedure) Diagnosis Code(s): --- Professional --- K64.8, Other hemorrhoids Z12.11, Encounter for screening for malignant neoplasm of colon --- Technical --- K64.8, Other hemorrhoids Z12.11, Encounter for screening for malignant neoplasm of colon CPT copyright 2016 [employer]. All rights reserved. The codes documented in this report are preliminary and upon veterinarian reviewmay be revised to meet current compliance requirements. [address] [place] [address] Shanae Kline NP GI PROCEDURE ORDERABLES Final R esult * Outside Hepatitis C Virus Screening (04/10/2014) Hepatitis C Screening - External Neg Historical Provider LAB BLOOD ORDERABLES Anitra acuña Result from Last 3 Months or Most Recently Relevant to Health Maintenance Insurance [facility] HMO Member Subscriber Plan / Payer (Ef fective 2025-Present) Name:Patricia Addi Relation to Subscriber:Self Name:PatriciaAddi Payer ID:Not on file Type:HMO Address: [address] [facility] HMO ACO O [facility] ACO O Member Subscriber Plan / Payer (Ef fective 2025-Present) Name:Addi Gomez Relation to Subscriber:Self Name:Addi Gomez Payer ID:Not on file Type:HMO Address: [place] [id number] O HMO Care Teams Junior Web Designer Relationship Specialty Start Date End Date Tay Hart NP [address] [place] [address] [address] [place] [address] PCP - General Nurse Practitioner 08/10/25 Additional Source Comments The information contained in this document represents components of the legal health record. It is not the complete legal health record.[facility]
--- OUTSIDE RECORDS SUMMARY | 2025-10-12 15:23 | XMS_ITS | Encounter Summary ---
Author Organization [facility] Address [address] [place] [address] [place] [address] Phone Care Team Providers Care Plastics Repairer Name Role Phone Rosaura Kline WATER METER INSTALLER Primary Care Provider [phone] Unknown, Unknown Primary Care Provider Bronson Lewis PA-C Primary Care Provider [phone] Pcp, Unknown Primary Care Provider aTy Shahid WATER METER INSTALLER Primary Care Provider Encounter Details Date Type Department Care Team (Late st Contact Info) Description 10/04/2018 Procedure Pass [facility], [address] [address] Social History Tobacco Use Types Packs/Day Years [...] Description 02/27/2026 10:10 AM EDT Office Visit [facility] Rheumatology Clinic [address] [place] [address] Harleen Foster MD, MPH [address] [facility], [address] [place] [address] [email or web address] documented as of this encounter Visit Diagnoses Not on filedocumented in this encounter Additional Health Concerns Assessment Noted Time PHQ-2 Depression Total Score: 0 09/15/20 18 11:33 AM EST documented as of this encounter Care Teams Plastics Repairer Relationship Specialty Start Date End Date Rosaura Kline, WATER METER INSTALLER [email or web address] PCP - General Family Medicine 11/16/17 01/12/24 Unknown, Deborah, PCP - General 01/13/24 11/19/24 Bronson Soto PA-C [address] [place] [email or web address] PCP - General Physician Theology Professor 11/20/24 12/06/24 Pcp, Unknown PCP - General 02/15/25 08/09/25 Tay Hart NP [address] [place] [address] [address] [place] [address] PCP - General Nurse Practitioner 08/10/25 documented as of this encounter Additional Source Comments The information contained in this document represents components of the legal health record. It is not the complete legal health record.[facility]
--- OUTSIDE RECORDS SUMMARY | 2025-10-12 15:23 | XMS_ITS | Encounter Summary ---
Author Organization [facility] Address [address] [place] [address] [place] [address] Phone Care Team Providers Care Chief Dog License Inspector Name Role Phone Rosaura Kline PROFILING MACHINE SET UP OPERATOR TOOL Primary Care Provider [phone] Unknown, Unknown Primary Care Provider Bronson Lewis PA-C Primary Care Provider [phone] Pcp, Unknown Primary Care Provider Tay Shahid PROFILING MACHINE SET UP OPERATOR TOOL Primary Care Provider Encounter Details Date Type Department Care Team (Late st Contact Info) Description 01/31/2018 Procedure Pass [facility] Endoscopy Admitting Dept Virtual Department [address] [place] [id number] Social History Tobacco Use Types Packs/Day Years [...] Department Care Team (Late Contact Info) Description 02/27/2026 10:10 AM EDT Office Visit [facility] Rheumatology Clinic [address] [place] [address] Harleen Foster MD, MPH [address], [address] [place] [address] documented as of this encounter Visit Diagnoses Not on filedocumented in this encounter Additional Health Concerns Assessment Noted Time PHQ-2 Depression Total Score: 0 01/05/20 10:33 AM EDT documented as of this encounter Care Teams Chief Dog License Inspector Relationship Specialty Start Date End Date Rosaura Kline PROFILING MACHINE SET UP OPERATOR TOOL PCP - General Family Medicine 11/16/17 01/12/24 Unknown, Deborah, PCP - General 01/13/24 11/19/24 Bronson Soto PA-C [address] [place] [address] PCP - General Physician Erosion Control Coordinator 11/20/24 12/06/24 Pcp, Unknown PCP - General 02/15/25 08/09/25 Tay Hart NP [address] [place] [address] [address] [place] [address] PCP - General Nurse Practitioner 08/10/25 documented as of this encounter Additional Source Comments The information contained in this document represents components of the legal health record. It is not the complete legal health record.[facility]
--- OUTSIDE RECORDS SUMMARY | 2025-10-12 15:23 | XMS_ITS | Encounter Summary ---
Author Organization [facility] Address [address] [place] [address] [place] [address] Phone Care Team Providers Care Concrete Sculptor Name Role Phone Rosaura Kline RIB KNITTER Primary Care Provider [phone] Unknown, Unknown Primary Care Provider Bronson Lewis PA-C Primary Care Provider [phone] Pcp, Unknown Primary Care Provider Tay Shahid RIB KNITTER Primary Care Provider Encounter Details Date Type Department Care Team (Late st Contact Info) Description 10/20/2018 Procedure Pass [facility], [address] [address] Social History Tobacco Use Types Packs/Day Years [...] Description 02/27/2026 10:10 AM EDT Office Visit [facility] Rheumatology Clinic [address] [place] [address] Harleen Foster MD, MPH 22 [facility], [address] [place] [address] [email or web address] documented as of this encounter Visit Diagnoses Not on filedocumented in this encounter Additional Health Concerns Assessment Noted Time PHQ-2 Depression Total Score: 0 09/15/20 18 11:33 AM EST documented as of this encounter Care Teams Concrete Sculptor Relationship Specialty Start Date End Date Rosaura Kline, RIB KNITTER [email or web address] PCP - General Family Medicine 11/16/17 01/12/24 Unknown, Deborah, PCP - General 01/13/24 11/19/24 Bronson Soto PA-C [address] [place] [address] [email or web address] PCP - General Physician Metal Sander 11/20/24 12/06/24 Pcp, Unknown PCP - General 02/15/25 08/09/25 Tay Hart NP [address] [place] [address] [address] [place] [address] PCP - General Nurse Practitioner 08/10/25 documented as of this encounter Additional Source Comments The information contained in this document represents components of the legal health record. It is not the complete legal health record.[facility]
--- OUTSIDE RECORDS SUMMARY | 2025-10-12 15:23 | XMS_ITS | Encounter Summary ---
Author Organization [facility] Address [address] [facility] [address] [place] [address] Phone Care Team Providers Care Rn Transplant Name Role Phone Rosaura Kline ARCHIVIST POLITICAL HISTORY Primary Care Provider [phone] Unknown, Unknown Primary Care Provider Bronson Lewis PA-C Primary Care Provider [phone] Pcp, Unknown Primary Care Provider Tay Shahid ARCHIVIST POLITICAL HISTORY Primary Care Provider Encounter Details Date Type Department Care Team (Late st Contact Info) Description 10/27/2018 Procedure Pass [facility],Outside Imaging [address] [place], [place] [id number] Social History Tobacco Use Types Packs/Day Years [...] Description 02/27/2026 10:10 AM EDT Office Visit [facility] Rheumatology Clinic [address] [place] [address] Harleen Foster MD, MPH [address] [facility], [address] [place] [address] [email or web address] documented as of this encounter Visit Diagnoses Not on filedocumented in this encounter Care Teams Rn Transplant Relationship Specialty Start Date End Date Rosaura Kline ARCHIVIST POLITICAL HISTORY PCP - General Family Medicine 11/16/17 01/12/24 Unknown, Unknown, PCP - General 01/13/24 11/19/24 Bronson Soto PA-C [address] [place] [address] [email or web address] PCP - General Physician Scientific Artist 11/20/24 12/06/24 Pcp, Unknown PCP - General 02/15/25 08/09/25 Tay Hart NP [address] [place] [address] PCP - General Nurse Practitioner 08/10/25 documented as of this encounter Additional Source Comments The information contained in this document represents components of the legal health record. It is not the complete legal health record.[facility]
--- OUTSIDE RECORDS SUMMARY | 2025-10-12 15:23 | XMS_ITS | Encounter Summary ---
Author Organization [facility] Address [address] [place] [address] [place] [address] Phone Care Team Providers Care Still Runner Name Role Phone Rosaura Kline FIRE LIEUTENANT Primary Care Provider [phone] Unknown, Unknown MD Primary Care Provider Bronson Lewis PA-C Primary Care Provider [phone] Pcp, Unknown Primary Care Provider Tay Shahid FIRE LIEUTENANT Primary Care Provider Reason for Referral * MRI/CAT Scan - Closed Specialty Diagnoses / Procedures Referred By Contac t Referred To Contact Procedures MRI Spine (Bone) Outside (No Interpretation) System, Provider Not In, [facility] [address] [address] Referral ID Status Reason Start Date Expiration Date Visits Re quested Visits Authorized [id number] Closed 10/27/2018 10/27/2019 1 1 Encounter Details Date Type Department Care Team (Late st Contact Info) Description 10/27/2018 Ancillary Orders [facility],Outside Imaging [address] [place], [place] [id number] System, Provider Not In, [facility] [address] [address] Social History Tobacco Use Types Packs/Day Years [...] Description 02/27/2026 10:10 AM EDT Office Visit [facility] Rheumatology Clinic [address] [place] [address] Harleen Foster MD, MPH [address] [facility], [address] [place] [address] [email or web address] documented as of this encounter Results * [...] documented as of this encounter Care Teams Still Runner Relationship Specialty Start Date End Date Rosaura Kline NP PCP - General Family Medicine 11/16/17 01/12/24 Unknown, Unknown, PCP - General 01/13/24 11/19/24 Bronson Soto PA-C [address] [place] [address] PCP - General Physician Mounter Smoking Pipe 11/20/24 12/06/24 Pcp, Unknown PCP - General 02/15/25 08/09/25 Tay Hart NP [address] [place] [address] [address] [place] [address] PCP - General Nurse Practitioner 08/10/25 documented as of this encounter Additional Source Comments The information contained in this document represents components of the legal health record. It is not the complete legal health record.[facility]
--- OUTSIDE RECORDS SUMMARY | 2025-10-12 15:23 | XMS_ITS | Encounter Summary ---
Author Organization [facility] Address [address] [place] [address] Phone Care Team Providers Care Golf Cart Mechanic Name Role Phone Rosaura Kline MECHANIC AND WELDER Primary Care Provider [phone] Unknown, Unknown Primary Care Provider Bronson Lewis PA-C Primary Care Provider [phone] Pcp, Unknown Primary Care Provider Tay Shahid MECHANIC AND WELDER Primary Care Provider Encounter Details Date Type Department Care Team (Late st Contact Info) Description 09/30/2018 Ancillary Orders [facility] [address] [place] [address] Rosaura Kline, MECHANIC AND WELDER [address] [facility] [address] [place] [address] [email or web address] Bilateral wrist pain Social History Tobacco Use [...] Description 02/27/2026 10:10 AM EDT Office Visit [facility] Rheumatology Clinic [address] [place] [address] Harleen Foster MD, MPH 22 [facility], [address] [place] [address] [email or web address] documented as of this encounter Results * [...] wrist pain POS - [id number] Rosaura Kline MECHANIC AND WELDER IMG XR UPPER EXTREMITY Final Re sult documented in this encounter Visit Diagnoses Diagnosis Bilateral wrist pain Bilateral wrist pain documented in this encounter Additional Health Concerns Assessment Noted Time PHQ-2 Depression Total Score: 0 09/15/20 18 11:33 AM EST documented as of this encounter Care Teams Golf Cart Mechanic Relationship Specialty Start Date End Date Rosaura Kline, MECHANIC AND WELDER PCP - General Family Medicine 11/16/17 01/12/24 Unknown, Unknown, PCP - General 01/13/24 11/19/24 Bronson Soto PA-C [address] [place] [address] PCP - General Physician Operations Section Manager 11/20/24 12/06/24 Pcp, Unknown PCP - General 02/15/25 08/09/25 Tay Hart NP [address] [place] [address] [place] [address] PCP - General Nurse Practitioner 08/10/25 documented as of this encounter Additional Source Comments The information contained in this document represents components of the legal health record. It is not the complete legal health record.[facility]
--- OUTSIDE RECORDS SUMMARY | 2025-10-12 15:23 | XMS_ITS | Encounter Summary ---
Author Organization [facility] Address [address] [place] [address] [place] [address] Phone Care Team Providers Care Technician Anatomic Pathology Name Role Phone Rosaura Kline GASATERIA ATTENDANT Primary Care Provider [phone] Unknown, Unknown Primary Care Provider Bronson Lewis PA-C Primary Care Provider [phone] Pcp, Unknown Primary Care Provider Tay Shahid GASATERIA ATTENDANT Primary Care Provider Encounter Details Date Type Department Care Team (Late st Contact Info) Description 10/02/2022 Procedure Pass [address] [place] [address] Social History Tobacco Use Types Packs/Day Years [...] Description 02/27/2026 10:10 AM EDT Office Visit [facility] Rheumatology Clinic [address] [place] [address] Harleen Foster MD, MPH 22 [facility], [address] [place] [address] [email or web address] documented as of this encounter Visit Diagnoses Not on filedocumented in this encounter Additional Health Concerns Assessment Noted Time PHQ-9 Depression Total Score: 13 021 10:30 PM EST PHQ-2 Depression Total Score: 1 11/12/19 22 12:08 PM EST documented as of this encounter Care Teams Technician Anatomic Pathology Relationship Specialty Start Date End Date Rosaura Kline, GASATERIA ATTENDANT [email or web address] PCP - General Family Medicine 11/16/17 01/12/24 Unknown, Unknown, PCP - General 01/13/24 11/19/24 Bronson Soto PA-C [address] [place] [address] [email or web address] PCP - General Physician Hand Silvering Supervisor 11/20/24 12/06/24 Pcp, Unknown PCP - General 02/15/25 08/09/25 Tay Hart NP [address] [place] [address] [address] [place] [address] PCP - General Nurse Practitioner 08/10/25 documented as of this encounter Additional Source Comments The information contained in this document represents components of the legal health record. It is not the complete legal health record.[facility]
== END 2025-10-12 15:39 | disposition home or self-care (01) ==
LOC: HO.HMCH 15:21
PROVIDERS: Visit Provider Internal Medicine
DX: T14.8XXA Other injury of unspecified body region, initial encounter (principal); Z69.81 Encounter for mental health services for victim of other abuse